=== PATIENT | male | born 1945 | race Caucasian/White ===

== ENCOUNTER 2017-05-03 04:32 | Emergency (ER) | payer MEDICARE, OTHER, SELFPAY ==
[2017-05-03 04:33] VITALS: BP 157/76; PULSE 57; RESP 20; TEMP 36.6; O2SAT 100; BMI 31.2
--- NOTE | 2017-05-03 04:47 | XR_ITS ---
XR chest portable HISTORY: Chest pain ITS.REASON: CARDIAC WORKUP ORDERING PHYSICIAN: Mark Gomes MD PATIENT AGE: 72 years COMPARISON: None available FINDINGS: The cardiomediastinal silhouette and pulmonary vascularity are within normal limits. The lungs are clear without infiltrates, suspicious nodules, or pleural effusions. No acute bony abnormalities. IMPRESSION: Negative chest, no acute finding
--- NOTE | 2017-05-03 05:31 | HMH.EDDIZZ ---
ED Disposition Clinical Impression: Benign paroxysmal positional vertigo Qualifiers: Laterality: unspecified laterality Qualified Code(s): H81.10 - Benign paroxysmal vertigo, unspecified ear Disposition: Home, Self-Care Condition on Discharge: Good Instructions: Vertigo Additional Instructions: use meds and see pcp for follow up Prescriptions: Meclizine HCl [Antivert 25mg tablet] 25 mg PO TID #14 tab Ondansetron HCl [Zofran 4mg Tab] 4 mg PO TID #20 tab Referrals: Provider,Referral, MD [Primary Care Provider] - - Critical Care Critical Care Time: No Attestation: On 05/03/17, the high probability of a clinically significant, sudden or life threatening deterioration of the following system(s) required my full and direct attention, intervention and personal management. The time I documented below is in addition to time spent performing reported procedures but includes the following listed in this critical care notation. Medical Decision Making - Medical Records Medical records reviewed: Yes: I reviewed the patient's medical records. Vital Signs: 05/03/17 04:33 Temperature 97.9 F Temperature Source Oral Pulse Rate [Right Brachial] 57 L Respiratory Rate 20 Blood Pressure [Right Arm] 157/76 Blood Pressure Mean [Right Arm] 103 Blood Pressure Source [Right Arm] Automatic Cuff Blood Pressure Position [Right Arm] Supine 02 Sat by Pulse Oximetry 100 Oxygen Delivery Method Room Air - Lab Data Lab results reviewed: Yes: I reviewed the patient's lab results. Lab Results 05/03/17 05:15: WBC 5.6, RBC 4.28 L, Hgb 14.2, Hct 40.3 L, MCV 94.1 H, MCH 33.3 H, MCHC 35.4, RDW 12.8, Plt Count 190, MPV 8.4, Neut % (Auto) 50.4, Lymph % (Auto) 40.7, [place] % (Auto) 6.8, Eos % (Auto) 1.6, Baso % (Auto) 0.5, Neut # (Auto) 2.8, Lymph # (Auto) 2.3, [place] # (Auto) 0.4, Eos # (Auto) 0.1, Baso # (Auto) 0.0 05/03/17 05:15: Sodium 143, Potassium 3.6, Chloride 109 H, Carbon Dioxide 21, Anion Gap 16.6 H, BUN 15, Creatinine 1.18, Estimated Creat Clear 79, Estimated GFR 61, Est GFR ( Amer) 73, Glucose 126 H, Calcium 8.4 L, Total Bilirubin 0.6, AST 25, ALT 45, Alkaline Phosphatase 76, Total Creatine Kinase 216, CK-MB (CK-2) 2.6, CK-MB (CK-2) Rel Index 1.2, Troponin I < 0.02, Total Protein 6.8, Albumin 3.6, Globulin 3.2, Albumin/Globulin Ratio 1.1 05/03/17 05:15: TSH 2.67, Thyroxine (T4) 7.6 Result diagrams: 05/03/17 05:15 05/03/17 05:15 Orders (Tests/Meds): ED MEDICATIONS Discontinued Medications Generic Name Dose Route Start Last Admin Trade Name Freq PRN Reason Stop Dose Admin Lactated Ringer's 1,000 mls @ 999 mls/hr 05/03/17 06:15 05/03/17 06:14 Lactated Ringer's 1000 Ml Bag IV 05/03/17 07:15 999 mls/hr .Q1H1M SHILOH Administration Meclizine HCl 25 mg 05/03/17 06:27 05/03/17 06:40 Antivert 25mg Tablet PO 05/03/17 06:28 25 mg ONCE ONE Administration Ondansetron HCl 4 mg 05/03/17 04:59 05/03/17 05:31 Zofran 4mg/2ml Vial IV 05/03/17 05:00 4 mg ONCE ONE Administration ORDERS Category Date Time Status ECG Request by /Nse Stat Y 05/03/17 04:47 Ordered - Radiology Data #1 Image(s): Chest Image Reviewed: Yes I reviewed the patient's radiology image Preliminary Findings: Normal/NAD - ECG Data Tracing #1 I reviewed this ECG and interpreted as documented below: Normal Sinus Rhythm: Yes Ischemic changes: non-specific ST-T wave changes - Stan Inquiry Pt receiving controlled substance: No Dizzy HPI - General Chief Complaint: Dizziness Stated Complaint: HEADSPINNING Time Seen by Provider: 05/03/17 05:31 Mode of Arrival: Ambulatory Source of Information: Patient, Relative, Medical Record Limitations: No Limitations Description of Symptoms (Recalled from ER Triage Doc. by RN): DIZZINESS AND SYNCOPAL LIKE EPISODES. STARTED AT 2300. PT REPORTS IM SO DIZZY I CANT STAND, WALK, OR MOVE WITHOUT GETTING SICK AT MY STOMACH . PT REPORTS I CANT OPEN MY EYES WITHOUT GET
--- NOTE | 2017-05-03 05:34 | ED_ITS ---
ED Disposition Clinical Impression: Benign paroxysmal positional vertigo Qualifiers: Laterality: unspecified laterality Qualified Code(s): H81.10 - Benign paroxysmal vertigo, unspecified ear Disposition: Home, Self-Care Condition on Discharge: Good Instructions: Vertigo Additional Instructions: use meds and see pcp for follow up Prescriptions: Meclizine HCl [Antivert 25mg tablet] 25 mg PO TID #14 tab Ondansetron HCl [Zofran 4mg Tab] 4 mg PO TID #20 tab Referrals: Provider,Referral, MD [Primary Care Provider] - - Critical Care Critical Care Time: No Attestation: On 05/03/17, the high probability of a clinically significant, sudden or life threatening deterioration of the following system(s) required my full and direct attention, intervention and personal management. The time I documented below is in addition to time spent performing reported procedures but includes the following listed in this critical care notation. Medical Decision Making - Medical Records Medical records reviewed: Yes: I reviewed the patient's medical records. Vital Signs: 05/03/17 04:33 Temperature 97.9 F Temperature Source Oral Pulse Rate [Right Brachial] 57 L Respiratory Rate 20 Blood Pressure [Right Arm] 157/76 Blood Pressure Mean [Right Arm] 103 Blood Pressure Source [Right Arm] Automatic Cuff Blood Pressure Position [Right Arm] Supine 02 Sat by Pulse Oximetry 100 Oxygen Delivery Method Room Air - Lab Data Lab results reviewed: Yes: I reviewed the patient's lab results. Lab Results 05/03/17 05:15: WBC 5.6, RBC 4.28 L, Hgb 14.2, Hct 40.3 L, MCV 94.1 H, MCH 33.3 H, MCHC 35.4, RDW 12.8, Plt Count 190, MPV 8.4, Neut % (Auto) 50.4, Lymph % ( Auto) 40.7, [place] % (Auto) 6.8, Eos % (Auto) 1.6, Baso % (Auto) 0.5, Neut # (Auto ) 2.8, Lymph # (Auto) 2.3, [place] # (Auto) 0.4, Eos # (Auto) 0.1, Baso # (Auto) 0.0 05/03/17 05:15: Sodium 143, Potassium 3.6, Chloride 109 H, Carbon Dioxide 21, Anion Gap 16.6 H, BUN 15, Creatinine 1.18, Estimated Creat Clear 79, Estimated GFR 61, Est GFR ( Amer) 73, Glucose 126 H, Calcium 8.4 L, Total Bilirubin 0.6, AST 25, ALT 45, Alkaline Phosphatase 76, Total Creatine Kinase 216, CK-MB (CK-2) 2.6, CK-MB (CK-2) Rel Index 1.2, Troponin I < 0.02, Total Protein 6.8, Albumin 3.6, Globulin 3.2, Albumin/Globulin Ratio 1.1 05/03/17 05:15: TSH 2.67, Thyroxine (T4) 7.6 Result diagrams: 05/03/17 05:15 05/03/17 05:15 Orders (Tests/Meds): ED MEDICATIONS Discontinued Medications Generic Name Dose Route Start Last Admin Trade Name Freq PRN Reason Stop Dose Admin Lactated Ringer's 1,000 mls @ 999 mls/hr 05/03/17 06:15 05/03/17 06:14 Lactated Ringer's 1000 Ml Bag IV 05/03/17 07:15 999 mls/hr .Q1H1M SHILOH Administration Meclizine HCl 25 mg 05/03/17 06:27 05/03/17 06:40 Antivert 25mg Tablet PO 05/03/17 06:28 25 mg ONCE ONE Administration Ondansetron HCl 4 mg 05/03/17 04:59 05/03/17 05:31 Zofran 4mg/2ml Vial IV 05/03/17 05:00 4 mg ONCE ONE Administration ORDERS Category Date Time Status ECG Request by /Germain Stat Y 05/03/17 04:47 Ordered - Radiology Data #1 Image(s): Chest Image Reviewed: Yes I reviewed the patient's radiology image Preliminary Findings: Normal/NAD - ECG Data Tracing #1 I reviewed this ECG and interpreted as docu
[2017-05-03 05:52] LABS: Basophils % 0.5 % (0.1-2.0); Eosinophils # 0.1 K/mm3 (0.0-0.4); Eosinophils % 1.6 % (0.1-12.0); Hematocrit 40.3 % (42.0-52.0); Hemoglobin 14.2 g/dL (14.1-18.0); Lymphocytes # 2.3 K/mm3 (0.7-4.5); Lymphocytes % 40.7 K/mm3 (10-50); Mean Corpuscular HGB Conc 35.4 g/dL (31.8-35.4); Mean Corpuscular Hemoglobin 33.3 pg (27.0-31.2); Mean Corpuscular Volume 94.1 fl (80-94); Mean Platelet Volume 8.4 fl (7.4-10.4); Monocytes # 0.4 K/mm3 (0.1-1.0); Monocytes % 6.8 % (1.7-9.3); Neutrophils # 2.8 K/mm3 (1.8-7.8); Neutrophils % 50.4 % (37.0-80.0); Platelet Count 190 K/mm3 (142-424); Red Blood Count 4.28 M/mm3 (4.60-6.20); Red Cell Distribution Width 12.8 % (11.5-17.5); White Blood Count 5.6 K/mm3 (4.8-10.8)
[2017-05-03 06:19] LABS: Alanine Aminotransferase 45 U/L (12-78); Albumin Level 3.6 gm/dL (3.4-5.0); Albumin/Globulin Ratio 1.1 (1.1-1.8); Alkaline Phosphatase 76 U/L (46-116); Anion Gap 16.6 mEq/L (5-15); Aspartate Amino Transferase 25 U/L (15-37); Bilirubin,Total 0.6 mg/dL (0.2-1.0); Blood Urea Nitrogen 15 mg/dL (7-18); CKMB Relative Index 1.2 U/L (0-4.0); Calcium 8.4 mg/dL (8.5-10.1); Carbon Dioxide 21 mmol/L (21.0-32.0); Chloride 109 mmol/L (98-107); Creatine Kinase 216 U/L (39-308); Creatine Kinase MB 2.6 mg/ml (0.0-3.6); Creatinine Clearance Estimated 79 mL/min (0-300); Creatinine,Serum 1.18 mg/dL (0.70-1.30); Estimated Glomerular Filt Rate 61 ml/min (>60); GFR (African American) 73 ML/MIN (>60); Globulin 3.2 gm/dl (1.3-3.2); Glucose 126 mg/dL (74-106); Potassium 3.6 mmoL/L (3.5-5.1); Sodium 143 mmol/L (136-145); Total Protein,Serum 6.8 gm/dL (6.4-8.2); Troponin I < 0.02 ng/ml (0.00-0.06)
[2017-05-03 07:06] LABS: T4 (Thyroxine) 7.6 ug/dl (4.7-13.3); Thyroid Stimulating Hormone 2.67 uIU/ml (0.358-3.740)
[2017-05-03 10:19] VITALS: BP 132/80; PULSE 85; RESP 18; TEMP 36.7; O2SAT 98
== END 2017-05-03 10:19 | disposition home or self-care (01) ==
PROVIDERS: Emergency Provider Emergency Medicine
DX: H81.10 Benign paroxysmal vertigo, unspecified ear (principal); Z79.899 Other long term (current) drug therapy
CPT/HCPCS: 71045; 80053; 82550; 82553; 84436; 84443; 84484; 85025; 93005; 93041; 96365; 99283; J2405

== ENCOUNTER → 2018-09-26 10:36 | Outpatient (POV) | payer MEDICARE, OTHER, SELFPAY | PROVIDERS: Visit Provider Otolaryngology | DX: Z00.00 Encounter for general adult medical examination without abnormal findings (principal) ==

== ENCOUNTER → 2018-10-09 10:19 | Outpatient (POV) | payer MEDICARE, OTHER, SELFPAY | PROVIDERS: PCP Family Medicine Addiction Medicine; Visit Provider Nurse Practitioner Family | DX: Z00.00 Encounter for general adult medical examination without abnormal findings (principal) ==

== ENCOUNTER → 2019-01-01 11:22 | Outpatient (POV) | payer MEDICARE, OTHER, SELFPAY | PROVIDERS: PCP Family Medicine Addiction Medicine; Visit Provider Nurse Practitioner Family | DX: Z00.00 Encounter for general adult medical examination without abnormal findings (principal) ==

== ENCOUNTER → 2019-10-05 17:32 | Outpatient (CLI) | payer MEDICARE, OTHER, SELFPAY ==
[2019-10-05 17:59] LABS: Basophils # 0.1 K/mm3 (0-0.2); Basophils % 0.8 % (0.1-2.0); Eosinophils # 0.2 K/mm3 (0.0-0.4); Eosinophils % 2.3 % (0.1-12.0); Hematocrit 45.1 % (42.0-52.0); Hemoglobin 14.7 g/dL (14.1-18.0); Lymphocytes # 2.6 K/mm3 (0.7-4.5); Lymphocytes % 37.1 % (10-50); Mean Corpuscular HGB Conc 32.5 g/dL (31.8-35.4); Mean Corpuscular Hemoglobin 32.2 pg (27.0-31.2); Mean Corpuscular Volume 99.3 fl (80-94); Mean Platelet Volume 7.5 fl (7.4-10.4); Monocytes # 0.7 K/mm3 (0.1-1.0); Monocytes % 9.4 % (1.7-9.3); Neutrophils # 3.6 K/mm3 (1.8-7.8); Neutrophils % 50.5 % (37.0-80.0); Platelet Count 222 K/mm3 (142-424); Red Blood Count 4.55 M/mm3 (4.60-6.20); Red Cell Distribution Width 13.2 % (11.5-17.5); White Blood Count 7.1 K/mm3 (4.8-10.8)
[2019-10-05 18:53] LABS: Alanine Aminotransferase 40 U/L (12-78); Albumin Level 4.4 g/dl (3.5-5.0); Albumin/Globulin Ratio 1.5 (1.1-1.8); Alkaline Phosphatase 81 U/L (38-126); Anion Gap 15.9 mEq/L (5-15); Aspartate Amino Transferase 40 U/L (17-59); Bilirubin,Total 0.6 mg/dl (0.2-1.3); Blood Urea Nitrogen 18 mg/dl (9-20); Calcium 9.3 mg/dl (8.4-10.2); Carbon Dioxide 22 mmol/L (22.0-30.0); Chloride 111 mmol/L (98-107); Chol/HDL Ratio 4.5 (1-3.5); Cholesterol 219 mg/dl (140-200); Estimated Glomerular Filt Rate 59 ml/min (>60); GFR (African American) 72 ML/MIN (>60); Glucose 93 mg/dl (74-100); HDL Cholesterol 49 mg/dl (40-60); Potassium 3.9 mmoL/L (3.5-5.1); Sodium 145 mmol/L (136-145); Total Protein,Serum 7.4 g/dl (6.3-8.2); Triglycerides 207 mg/dl (30-150); VLDL Cholesterol 41 mg/dL (0-40)
[2019-10-05 19:04] LABS: Direct LDL Cholesterol 138.99 mg/dL (100-129)
[2019-10-05 19:13] LABS: T4 (Thyroxine) 8.8 ug/dl (5.53-11.0)
[2019-10-05 19:27] LABS: Prostate Specific Ag Screen 0.5 ng/ml (0.0-4.0); Thyroid Stimulating Hormone 2.47 uIU/mL (0.465-4.68)
== END ==
PROVIDERS: Visit Provider Family Medicine
DX: E03.9 Hypothyroidism, unspecified (principal); Z12.5 Encounter for screening for malignant neoplasm of prostate
CPT/HCPCS: 80053; 80061; 84436; 84443; 85025; G0103

== ENCOUNTER → 2020-12-16 09:36 | Outpatient (CLI) | payer MEDICARE, OTHER, SELFPAY ==
--- NOTE | 2020-12-16 10:07 | ECG_ITS ---
APPROVED REPORT Exam: Resting ECG HR:51 bpm ECG Measurements Heart Rate 51 AXES VA 212 P -2 QRSd 78 QRS -27 QT 450 T -11 QTc 414 Conclusion Sinus bradycardia with 1st degree AV block Minimal voltage criteria for LVH, may be normal variant Unchaged q in III Abnormal ECG Electronically signed by : Syed Rivers MD 12/16/2020 10:51:46
[2020-12-16 10:14] LABS: Basophils # 0.1 K/mm3 (0-0.2); Basophils % 0.9 % (0.1-2.0); Eosinophils # 0.2 K/mm3 (0.0-0.4); Eosinophils % 2.1 % (0.1-12.0); Hematocrit 43.8 % (42.0-52.0); Hemoglobin 14.8 g/dL (14.1-18.0); Lymphocytes # 2.5 K/mm3 (0.7-4.5); Lymphocytes % 35.9 % (10-50); Mean Corpuscular HGB Conc 33.7 g/dL (31.8-35.4); Mean Corpuscular Hemoglobin 33.5 pg (27.0-31.2); Mean Corpuscular Volume 99.2 fl (80-94); Mean Platelet Volume 8.2 fl (7.4-10.4); Monocytes # 0.5 K/mm3 (0.1-1.0); Monocytes % 7.3 % (1.7-9.3); Neutrophils # 3.8 K/mm3 (1.8-7.8); Neutrophils % 53.8 % (37.0-80.0); Platelet Count 266 K/mm3 (142-424); Red Blood Count 4.42 M/mm3 (4.60-6.20); Red Cell Distribution Width 13.6 % (11.5-17.5); White Blood Count 7.1 K/mm3 (4.8-10.8)
== END ==
PROVIDERS: Visit Provider Otolaryngology
DX: Z01.812 Encounter for preprocedural laboratory examination (principal); Z20.822 Contact with and (suspected) exposure to COVID-19; L98.9 Disorder of the skin and subcutaneous tissue, unspecified
CPT/HCPCS: 36415; 85025; 93005; C9803; U0003; U0005

== ENCOUNTER 2020-12-18 07:42 | Day surgery (SDC) | payer MEDICARE, OTHER, SELFPAY ==
[2020-12-16 11:53] VITALS: BMI 32.6
[2020-12-18 08:23] VITALS: BP 174/86; PULSE 54; RESP 18; TEMP 36.9; O2SAT 97
[2020-12-18 11:05] VITALS: BP 150/87; PULSE 83; RESP 18; TEMP 36.4; O2SAT 96
[2020-12-18 11:20] VITALS: BP 150/86; PULSE 74; RESP 18; TEMP 36.4; O2SAT 93
[2020-12-18 11:35] VITALS: BP 150/84; PULSE 81; RESP 18; TEMP 36.4; O2SAT 94
--- NOTE | 2020-12-18 15:15 | HMH.OPNOTE ---
Date of procedure: 12/18/20 Pre-op Diagnosis:: 1. 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 Excision of neoplasm left cheek 1.5 cm with tissue rearrangement geometric plastic repair 2. Excision of lesion right cheek 4 cm with tissue rearrangement Z-plasty repair Surgeon:: Kerwin Vazquez MD [employer]OTE [employer] OPERATIONS SUPERVISOR:: Rahat Crump Anesthesia: MAC Estimated blood loss (mL): 4 Operative findings:: same Operative note:: The lesion on the left cheek was prepped and draped, and the perilesional area was infiltrated with 4 cc of 2% lidocaine containing epinephrine the dhara out measured 1.5 cm the Alysa was incised and the lesion was excised and submitted. Bleeding was stopped with bipolar cautery superior and inferior incisions were made and a tissue rearrangement, Z-plasty repair was done with interrupted 4-0 nylon sutures. Similarly the right ear cheek was prepped and draped the lesion measured 4 cm the lesion was marked out and the dhara out was incised and the lesion was excised in entirety and submitted bleeding was stopped with bipolar cautery superior and inferior incisions were made and tissue rearrangement geometric plastic repair was done with interrupted 2-0 nylon sutures. The patient was sent to recovery in good general condition Condition: stable Disposition: PACU Complications:: none
== END 2020-12-18 11:35 | disposition home or self-care (01) ==
LOC: OR 07:43
PROVIDERS: PCP Family Medicine; Visit Provider Otolaryngology
DX: L82.0 Inflamed seborrheic keratosis (principal); I10 Essential (primary) hypertension; E07.9 Disorder of thyroid, unspecified; Z79.899 Other long term (current) drug therapy
CPT/HCPCS: 14040 ×2; 88305; 96374

== ENCOUNTER 2021-07-16 12:27 | Emergency (ER) | payer MEDICARE, OTHER, SELFPAY ==
[2021-07-16 13:30] VITALS: BP 150/73; PULSE 58; RESP 18; TEMP 36.8; O2SAT 97; BMI 31.8
--- NOTE | 2021-07-16 14:09 | HMH.EDUTC ---
[facility] [place] Disposition Clinical Impression: Sinusitis Qualifiers: Sinusitis location: unspecified location Chronicity: unspecified Qualified Code(s): J32.9 - Chronic sinusitis, unspecified Disposition: Home, Self-Care Condition on Discharge: Good Instructions: Sinusitis, DI for Sinusitis, Prednisone Additional Instructions: *Monitor Temp, Over the counter Motrin or Tylenol as directed/as needed Tylenol every 4 hours and Motrin every 6 hours (as long as your family doctor has told you that you can take it) for fever or pain. and straight to ER if unable to lower temp less than 101.0 after medication given *Warm salt water gargles may help to soothe the throat *Throat Lozenges *Warm fluids like tea with honey may help to soothe the throat *Sleep elevated *Humidifier/Vaporizer *Flonase 2 sprays in each nostril daily but be aware that it may take 2-3 days before you notice improvement Take medication as prescribed Follow up IMMEDIATELY for new or worsening symptoms or no Noticeable improvement over the next 48-72 hours. 911 for difficulty breathing or swallowing Prescriptions: Amoxicillin/Potassium Clav [Amox-Clav 875-125 mg Tablet] 1 tab PO BID #14 tab Transmission Status: Pending to [facility] # predniSONE [Deltasone 10mg tablet] 10 mg PO BID 5 Days #10 tab Transmission Status: Pending to [facility] # Fluticasone Propionate [Flonase 50mcg nasal spray 16gm] 1 spr NS DAILY #1 each Transmission Status: Pending to [facility] # Referrals: Humble Upton MD [Primary Care Provider] - As needed Time of Disposition: 14:18 Medical Decision Making - Stan Inquiry Pt receiving controlled substance: No Stan was queried for this patient: No Vital Signs: 07/16/21 13:30 Temperature 98.3 F Temperature Source Oral Pulse Rate [Right Brachial] 58 L Respiratory Rate 18 Blood Pressure [Right Arm] 150/73 H Blood Pressure Mean [Right Arm] 98 Blood Pressure Source [Right Arm] Automatic Cuff Blood Pressure Position [Right Arm] Sitting 02 Sat by Pulse Oximetry 97 Oxygen Delivery Method Room Air Medical Decision Narrative: Patient states that he has taken prednisone in the past without reactions or complications [facility] [place] HPI - General Stated complaint: sinus congestion/drainage, cough, hoarse Time Seen by Provider: 07/16/21 14:09 Mode of Arrival: Ambulatory Source of Information: Patient Limitations: No Limitations Description of Symptoms (Recalled from Triage Doc. by RN): PATIENT C/O POSSIBLE SINUS INFECTION AND LOSS OF VOICE HEENT Symptoms (Recalled from RN notes): Yes Resp Symptoms (Recalled from RN notes): No Skin Symptoms (Recalled from RN notes): No MS Symptoms (Recalled from RN notes): No Functional Status (Recalled from RN notes): WNL - History of Present Illness Provider Complaint: Patient state that he has been having sinus pain and pressure for about 2 weeks States that he thought it was allergies but he woke up this morning feeling hoarse and pain behind his eyes so he came in to get checked - Related Data Home Medications Medication Instructions Recorded Confirmed Cholestyramine/Aspartame 4 g PO BID 12/16/20 01/21/21 [Cholestyramine Light] Esomeprazole Magnesium 40 mg PO DAILY 12/16/20 01/21/21 Famotidine [Acid Senior Marketing Engineer] See Rx Instructions .ROUTE .COMPLEX 12/16/20 01/21/21 Levothyroxine Sodium [Synthroid See Rx Instructions .ROUTE .COMPLEX 12/16/20 01/21/21 75mcg (0.075mg) tablet] atenoloL [Atenolol 25mg Tab] 25 mg PO DAILY 12/16/20 07/16/21 Previous Rx's Medication Instructions Recorded meclizine 25 mg tablet 25 mg PO TID #60 tab 10/05/19 amoxicillin 500 mg capsule 500 mg PO Q12H 10 Days #20 cap 01/21/21 Amoxicillin/Potassium Clav 1 tab PO BID #14 tab 07/16/21 [Amox-Clav 875-125 mg Tablet] Fluticasone Propionate [Flonase 1 spr NS DAILY #1 each 07/16/21 50mcg nasal spray 16gm] predniSONE [Deltasone 10mg tablet] 10 mg PO BID 5 Days #10 tab
[2021-07-16 14:20] VITALS: BP 150/73; PULSE 58; RESP 18; TEMP 36.8; O2SAT 97
== END 2021-07-16 14:23 | disposition home or self-care (01) ==
PROVIDERS: Emergency Provider Nurse Practitioner; PCP Family Medicine
DX: J32.9 Chronic sinusitis, unspecified (principal); K21.9 Gastro-esophageal reflux disease without esophagitis
CPT/HCPCS: 99212; G0463

== ENCOUNTER 2022-08-30 08:54 | Observation (INO) | payer MEDICARE, OTHER, SELFPAY ==
[2022-08-30] VITALS (13 sets, daily range): BP systolic 115–185; BP diastolic 59–97; PULSE 45–81; RESP 16–20; TEMP 36.4–37.1; O2SAT 94–98; BMI 35.9; BMI 35.4
--- NOTE | 2022-08-30 08:54 | CT_ITS ---
FINAL REPORT TECHNIQUE: multiple axial CT images were performed from the foramen magnum to the vertex without enhancement. This study was performed with techniques to keep radiation doses as low as reasonably achievable (ALARA). Individualized dose reduction techniques using automated exposure control or adjustment of mA and/or kV according to the patient's size were employed. CLINICAL HISTORY: stroke alert FINDINGS: The ventricles are enlarged. There is moderate, diffuse atrophy. There are moderate periventricular white matter change likely related to small vessel disease. Physiologic calcifications are seen in the basal ganglia. There is no evidence of hemorrhage. No masses are identified. No extra-axial fluid is seen. The sinuses are normal. IMPRESSION: Moderate atrophy and chronic changes without acute process. Reviewed, Interpreted and Dictated by Christiano Cartwright MD Transcribed by Gladys Baeza Authenticated and [facility]
--- NOTE | 2022-08-30 08:55 | CT_ITS ---
FINAL REPORT TECHNIQUE: NASCET technique utilized for stenosis evaluation. CLINICAL HISTORY: stroke alert COMPARISON: None FINDINGS: RIGHT CAROTID: There is moderate vascular calcification of the posterior aspect of the proximal right internal carotid artery with at least 50% stenosis. LEFT CAROTID: Extensive vascular calcification is also seen of the left internal carotid artery bulb without significant stenosis. VERTEBRALS: The vertebrals are patent. No significant stenosis is present. IMPRESSION: Calcification of the carotid bifurcations bilaterally with at least 50% stenosis of the right ICA. Reviewed, Interpreted and Dictated by Christiano Cartwright MD Transcribed by Amanda Rodriguez Authenticated and [facility]
--- NOTE | 2022-08-30 08:56 | CT_ITS ---
FINAL REPORT TECHNIQUE: Multiple axial CT angiography images were performed from the foramen magnum to the vertex before and during IV contrast administration. This study was performed with techniques to keep radiation doses as low as reasonably achievable (ALARA). Individualized dose reduction techniques using automated exposure control or adjustment of mA and/or kV according to the patient's size were employed. CLINICAL HISTORY: stroke protocol FINDINGS: CTA HEAD: There is extensive venous contamination. There is moderate vascular calcification of the posterior aspect of the right internal carotid artery with at least 50% stenosis. Extensive vascular calcification is also seen of the left internal carotid artery bulb without significant stenosis. The major intracranial arterial system is patent without hemodynamically significant stenosis or major vessel occlusion.No aneurysm is identified. IMPRESSION: Calcification of the carotid bifurcations bilaterally with at least 50% stenosis of the right ICA. No evidence of intracranial large vessel occlusion. Reviewed, Interpreted and Dictated by Christiano Cartwright MD Transcribed by Gladys Baeza Authenticated and [facility]
--- NOTE | 2022-08-30 08:57 | PC.NURSE ---
pt to CT via stretcher
--- NOTE | 2022-08-30 08:57 | PC.NURSE ---
To CT for stroke alert
--- NOTE | 2022-08-30 08:57 | PC.NURSE ---
Stroke Alert called by ER at [phone]
--- NOTE | 2022-08-30 09:04 | XR_ITS ---
FINAL REPORT CLINICAL HISTORY: stroke symptoms COMPARISON: None FINDINGS: The heart size is normal. The mediastinum is normal. There is no focal infiltrate or edema. There are no pleural effusions. There is no pneumothorax. There is no osseous abnormality. IMPRESSION: No acute cardiopulmonary process Reviewed, Interpreted and Dictated by Christiano Cartwright MD Transcribed by Amanda Rodriguez Authenticated and [facility]
--- NOTE | 2022-08-30 09:04 | HMH.EDGENADL ---
Discharge Plan Disposition Patient Disposition: Admitted Chief Complaint: Neuro Symptoms/Deficit Clinical Impressions Clinical Impression: Stroke Discharge ED Provider: Juan Chamberlain General Adult HPI General Chief complaint: Neuro Symptoms/Deficit Stated complaint: slurred speech Time Seen by Provider: 08/30/22 09:02 Mode of Arrival: Ambulatory Source of Information: Patient Limitations: No Limitations Description of Symptoms (Recalled from ER Triage Doc. by RN): Pt reports woke up this morning with slurred speech, R sided facial droop noted also. Pt ambulatory into ER independently. Pt reports went to bed at 9:30 pm lastnight with no symptoms. History of Present Illness HPI narrative: This is a 77-year-old male with history of hypertension and thyroid problem, who is presenting with strokelike symptoms. Patient states that he went to bed around 9:30 PM on 08/29 and woke up today with slurred speech. About an hour prior to arrival, went to work where son noticed he was walking off balance, and having difficulty speaking, so brought him to the ER. Here, patient without pain complaints, but stating he is having difficulty speaking. Denies numbness, weakness, blurred or double vision, tingling, difficulty breathing or swallowing, difficulty walking, falls, or any other concerns. Related Data Home Medications Medication Instructions Recorded Confirmed cholestyramine-aspartame 4 gram 4 g PO BID STOMACH 12/16/20 06/01/22 oral powder for susp in a packet Previous Rx's Medication Instructions Recorded atenolol 50 mg tablet 50 mg PO DAILY #90 tabs 06/01/22 levothyroxine 75 mcg tablet See Rx Instructions .Route 06/01/22 .COMPLEX #90 tabs Allergies Allergy/AdvReac Type Severity Reaction Status Date / Time No Known Allergies Allergy Verified 06/01/22 13:52 [facility] Disclaimer: The information contained in this section may have been updated after the patient was seen, as this information can be updated by other users. Social History Smoking Status: Current every day smoker second hand exposure: No alcohol intake: never substance use type: denies use current occupational status: retired Travel in the last 8 weeks: None household members: children housing: house current occupational exposures/hazards: No caffeine: Yes ROS Obtained: Yes All systems reviewed & no additional complaints except as documented Physical Exam General General appearance: alert and in no apparent distress Head Head exam: other (Right-sided facial droop sparing forehead) Eye Eye exam: Present other (Right-sided ptosis) ENT ENT exam: Present normal exam and normal oropharynx Respiratory Respiratory exam: Present normal lung sounds bilaterally; Absent respiratory distress or wheezes Cardiovascular Cardiovascular exam: Present regular rate and normal rhythm Abdominal Exam Abdominal exam: Present soft; Absent distention or tenderness Extremities Exam Extremities exam: Present normal inspection and full ROM (Mild dysmetria right upper extremity) Back Exam Back exam: Absent CVA tenderness (R) or CVA tenderness (L) Neurological Exam Neurological exam: Present alert, oriented X3 (Oriented to person and time, not place), normal gait and reflexes normal; Absent CN II-XII intact (Right-sided facial droop sparing forehead) or motor sensory deficit Psychiatric Psychiatric exam: Present normal affect Skin Skin exam: Present warm Medical Decision Making Medical Records Medical records reviewed: Yes I reviewed the patient's medical records. Tsan Inquiry Pt receiving controlled substance: No Vital Signs: 08/30/22 08:54 08/30/22 09:23 08/30/22 09:30 Pulse Rate 58 L 58 L Pulse Rate [Right Radial] 55 L Respiratory Rate 18 18 Blood Pressure 149/71 H 151/78 H Blood Pressure [Right Arm] 164/86 H Blood Pressure Mean 94 84 Blood Pressure Mean
[2022-08-30 09:26] LABS: Basophils % 0.4 % (0.1-2.0); Eosinophils # 0.2 K/mm3 (0.0-0.4); Eosinophils % 2.5 % (0.1-12.0); Hematocrit 41.9 % (42.0-52.0); Hemoglobin 14.2 g/dL (14.1-18.0); Lymphocytes # 2.4 K/mm3 (0.7-4.5); Lymphocytes % 38.5 % (10-50); Mean Corpuscular HGB Conc 33.9 g/dL (31.8-35.4); Mean Corpuscular Hemoglobin 32.6 pg (27.0-31.2); Mean Corpuscular Volume 96.1 fl (80-94); Mean Platelet Volume 8.4 fl (7.4-10.4); Monocytes # 0.4 K/mm3 (0.1-1.0); Monocytes % 6.9 % (1.7-9.3); Neutrophils # 3.3 K/mm3 (1.8-7.8); Neutrophils % 51.8 % (37.0-80.0); Platelet Count 206 K/mm3 (142-424); Red Blood Count 4.36 M/mm3 (4.60-6.20); Red Cell Distribution Width 13.3 % (11.5-17.5); White Blood Count 6.3 K/mm3 (4.8-10.8)
[2022-08-30 09:29] LABS: Chloride 108 mmol/L (98-107); Potassium 3.7 mmoL/L (3.5-5.1); Sodium 142 mmol/L (136-145)
[2022-08-30 09:31] LABS: Blood Urea Nitrogen 13 mg/dl (9-20); Creatinine Clearance Estimated 90 mL/min (50-200); Estimated Glomerular Filt Rate 65 ml/min (>60); GFR (African American) 79 ML/MIN (>60)
[2022-08-30 09:32] LABS: Activated Partial Thrombo Time 26.1 seconds (22.8-30.6); Alanine Aminotransferase 79 U/L (12-78); Albumin Level 4.1 g/dl (3.5-5.0); Albumin/Globulin Ratio 1.4 (1.1-1.8); Alkaline Phosphatase 73 U/L (38-126); Anion Gap 13.7 mEq/L (5-15); Aspartate Amino Transferase 95 U/L (17-59); Bilirubin,Total 0.7 mg/dl (0.2-1.3); Calcium 8.8 mg/dl (8.4-10.2); Carbon Dioxide 24 mmol/L (22.0-30.0); Chol/HDL Ratio 5.4 (1-3.5); Cholesterol 216 mg/dl (140-200); Globulin 2.9 g/dL (1.3-3.2); Glucose 122 mg/dl (74-100); HDL Cholesterol 40 mg/dl (40-60); INR 0.96 (0.9-1.1); Prothrombin Time 10.4 seconds (10.1-12.5); Triglycerides 156 mg/dl (30-150); VLDL Cholesterol 31 mg/dL (0-40)
[2022-08-30 09:43] LABS: Direct LDL Cholesterol 123.74 mg/dL (100-129)
--- NOTE | 2022-08-30 09:46 | PC.NURSE ---
contacted rad to check on status of pt CT head for stroke protocol- states she is going to fax down a preliminary report on it.
[2022-08-30 09:47] LABS: Troponin I < 0.01 ng/ml (0.00-0.034)
--- NOTE | 2022-08-30 09:50 | ECG_ITS ---
APPROVED REPORT Exam: Resting ECG HR:57 bpm ECG Measurements Heart Rate 57 AXES LA 171 P 232 QRSd 82 QRS -5 QT 413 T 20 QTc 407 Conclusion SINUS BRADYCARDIA WITH OCCASIONAL SUPRAVENTRICULAR PREMATURE COMPLEXES BORDERLINE ECG UNCONFIRMED REPORT Electronically signed by : Syed Rivers MD 08/30/2022 17:11:06
[2022-08-30 09:51] LABS: Hemoglobin A1C 5.4 % (4.0-6.0); T4 (Thyroxine) 11.7 ug/dl (5.53-11.0)
--- NOTE | 2022-08-30 09:54 | PC.NURSE ---
DAYA MCCARTNEY at discussing test results
--- NOTE | 2022-08-30 09:56 | PC.NURSE ---
Radiology power-shared to [facility]. Disc also being burned with images
--- NOTE | 2022-08-30 09:57 | PC.NURSE ---
Dr. Chamberlain at to speak with patient for update on test results; family at BS
--- NOTE | 2022-08-30 10:03 | PC.NURSE ---
Dr Chamberlain speaking with Dr Pimentel
[2022-08-30 10:05] LABS: Thyroid Stimulating Hormone 3.53 uIU/mL (0.465-4.68)
--- NOTE | 2022-08-30 10:11 | PC.NURSE ---
DAYA MCCARTNEY speaking with hospitalist dr. schmidt
--- NOTE | 2022-08-30 10:14 | PC.NURSE ---
notified care management of admission
[2022-08-30 10:18] LABS: Coronavirus 19, PCR Not Detected (NotDetected); Influenza A, PCR Not Detected (NotDetected); Influenza B, PCR Not Detected (NotDetected)
--- NOTE | 2022-08-30 10:41 | HMH.PHAINT1 ---
Pharmacy Intervention Comments: MEDICATION RECONCILIATION COMPLETED ON PATIENT USING EXTERNAL FILL HISTORY FROM PHARMACY AND LIST FROM PCP OFFICE. -CHERIE TORRES, [id number]
--- NOTE | 2022-08-30 10:54 | PC.NURSE ---
PT ASPIRIN HELD AT THIS TIME TO FAILED DYSPHAGIA SCREEN. PT HAS OBVIOUS SLUURED SPEECH AND RIGHT FACIAL DROOP
--- NOTE | 2022-08-30 11:07 | PC.NURSE ---
Dr. Taylor hospitalist at BS
--- NOTE | 2022-08-30 11:21 | PC.NURSE ---
report called to danyelle garvin rn on second floor at this time, states will send staff down to transport pt.
--- NOTE | 2022-08-30 12:10 | EXP.HP ---
History of Present Illness *Admission Date: 08/30/22 *Reason for visit:: Ataxia, speech difficulty, facial droop *History of present illness: Patient with past medical history of hypothyroidism, hypertension, hyperlipidemia presents with ataxia, speech problems, and right facial droop. Patient's 3 sons and daughter present during evaluation by Dr. Taylor. Daughter and family state that right facial droop has occurred for over 2 months. Family agree facial droop has gotten worse over past 24 hours. Patient reports going to bed around 10 PM yesterday, and awaking with speech/walking issues. Patient thinks he awoke around 6 AM, then went to work at 8 AM. Patient's son present with patient at 6 AM, and confirmed patient ataxia/right facial droop issues. Speech difficulties and ataxia worsened at work around 8 AM, and patient brought to hospital for evaluation. Patient's admission NIH score 4, with [facility] neurology service consulted. Patient deemed outside tPA window, CTA head/neck showed no large vascular occlusion, and CT brain showed no hemorrhage or mass effect. Patient subsequently deemed appropriate for admission to [facility], and admitted for acute/subacute CVA evaluation. Persistent right facial droop, and right lower extremity weakness noted by Dr. Taylor during ED evaluation. Denies fevers, sick contacts, chills, diarrhea, chest pain, shortness of breath, or abdominal pain. [facility] Disclaimer: The information contained in this section may have been updated after the patient was seen, as this information can be updated by other users. Social History Smoking Status: Current every day smoker second hand exposure: No alcohol intake: never substance use type: denies use current occupational status: retired Travel in the last 8 weeks: None household members: children housing: house current occupational exposures/hazards: No caffeine: Yes Meds Home Medications and Allergies Home Medications Medication Instructions Recorded Confirmed Type atenolol 50 mg tablet 50 mg PO DAILY Hypertension 08/30/22 08/30/22 History levothyroxine 75 mcg tablet 75 mcg PO DAILY THYROID 08/30/22 08/30/22 History New Prescriptions to Start Prescriptions: Allergies Allergy/AdvReac Type Severity Reaction Status Date / Time No Known Allergies Allergy Verified 06/01/22 13:52 Exam Data for Last 24 hours Vital signs and Labs for Last 24 Hours: Pulse Resp BP Pulse Ox 57 L 20 175/95 H 96 08/30/22 11:31 08/30/22 11:31 08/30/22 11:31 08/30/22 11:31 Laboratory Results - last 24 hr 08/30/22 08:56: WBC 6.3, RBC 4.36 L, Hgb 14.2, Hct 41.9 L, MCV 96.1 H, MCH 32.6 H, MCHC 33.9, RDW 13.3, Plt Count 206, MPV 8.4, Neut % (Auto) 51.8, Lymph % (Auto) 38.5, [place] % (Auto) 6.9, Eos % (Auto) 2.5, Baso % (Auto) 0.4, Neut # (Auto) 3.3, Lymph # (Auto) 2.4, [place] # (Auto) 0.4, Eos # (Auto) 0.2, Baso # (Auto) 0.0 08/30/22 08:56: PT 10.4, INR 0.96, APTT 26.1 08/30/22 08:56: Sodium 142, Potassium 3.7, Chloride 108 H, Carbon Dioxide 24, Anion Gap 13.7, BUN 13, Creatinine 1.10, Estimated Creat Clear 90, Estimated GFR 65, Est GFR ( Amer) 79, Glucose 122 H, Calcium 8.8, Total Bilirubin 0.7, AST 95 H, ALT 79 H, Alkaline Phosphatase 73, Troponin I < 0.01, Total Protein 7.0, Albumin 4.1, Globulin 2.9, Albumin/Globulin Ratio 1.4, Triglycerides 156 H, Cholesterol 216 H, LDL Cholesterol Direct 123.74, VLDL Cholesterol 31, HDL Cholesterol 40, Cholesterol/HDL Ratio 5.4 H, TSH 3.53, Thyroxine (T4) 11.7 H 08/30/22 08:56: Hemoglobin A1c 5.4 08/30/22 10:15: SARS-CoV-2 (PCR) Not detected, Influenza A Untype (PCR) Not detected, Influenza Type B (PCR) Not detected I & O for Last 24 hours: Intake & Output 08/27/22 08/28/22 08/29/22 08/30/22 23:59 23:59 23:59 23:59 Weight 113.398 kg Constitutional Constitutional: no acute distress *Routine HEEN
--- NOTE | 2022-08-30 12:20 | PC.NURSE ---
pt to rad
--- NOTE | 2022-08-30 12:21 | MR_ITS ---
FINAL REPORT CLINICAL HISTORY: TO RULE OUT STROKE right sided facial droop, slurred speech COMPARISON: None FINDINGS: Multi planar MR imaging was obtained through the brain without contrast. The midline structures appear intact. There is moderate abnormal signal in the deep white matter bilaterally. There is mild restricted diffusion in the region of the head of the caudate and anterior left basal ganglia. There is marked decreased signal on the ADC map images probably due to acute ischemia. The visualized paranasal sinuses demonstrate normal signal voids. The seventh and eighth nerve root complexes are intact. IMPRESSION: Extensive changes of chronic microvascular ischemia. Large region of restricted diffusion in the head of the caudate and anterior left basal ganglia probably due to acute ischemia. Reviewed, Interpreted and Dictated by Christiano Cartwright MD Transcribed by Amanda Rodriguez Authenticated and [facility]
--- NOTE | 2022-08-30 12:23 | PC.NURSE ---
arrive to floor at 12:10 by w/c from ED
--- NOTE | 2022-08-30 13:26 | HMH.PTEV ---
Physical Therapy Evaluation Rehab PT IP Evaluation Start: 08/30/22 11:58 Freq: ONCE Status: Active Protocol: Document 08/30/22 13:23 CHRISSYJamarYENI (Rec: 08/30/22 13:26 [place] [id number]) Subjective/History History History 77 yowm adm to [facility] with CVA vs TIA symptoms, including R sided weakness, slurred speech and confusion. Hx of HTN, HLD , Hypothyroidism. He reports he lives with his son, 1-2 steps to enter the home, and he is generally independent with all mobility without AD. Subjective Subjective Pt has no c/o this pm, feels better. Rehab PT IP Eval Objective Appearance Patient Behavior Appropriate Patient Orientation Person,Place,Time Difficulty following instructions none Speech Pattern Clear Ambulation Patient Able to Ambulate Yes Ambulation Observation IP General Gait Pattern Observation No Deviations/Normal Ambulation Distance (feet) 20 Ambulation Assistive Device None Ambulation Ability Independent Balance Ability to Arise Able, uses arms to help Sitting Balance Steady, safe Standing Balance Steady, wide stance Dynamic Sitting Balance Ability Good Dynamic Standing Balance Ability Good Transfers Bed Transfer Ability Independent Chair Transfer Ability Independent Sit to Stand Bed Transfer Ability Independent Sit to Stand Chair Transfer Ability Independent ROM All Extremities PT ROM Status WFL MMT All Extremities PT MMT WFL Rehab PT IP prob,goals,plan Problems Date of Evaluation: 08/30/22 Discharge Plan PT Discharge Plan Symptoms appear to be resolving, but mild slurred speech remains. Pt is appropriate to return home once medically stable for d/c. Outpatient thrapy services as needed. G -code Required No Eval Complexity Eval Charge Codes 19014 - High Complexity PHYSICIAN CERTIFICATION: I certify the specified therapy services for Nelson Fong are required, authorized, and reviewed every 30 days.
--- NOTE | 2022-08-30 13:31 | HMH.OTEV ---
OT Inpatient Evaluation Rehab OT IP Evaluation Start: 08/30/22 11:58 Freq: ONCE Status: Active Protocol: Document 08/30/22 13:22 LAISHA (Rec: 08/30/22 13:31 [facility] [id number]) Rehab OT IP Assessment Subjective History Pt oriented x3 on arrival. Pt agreeable to engage in therapy session. Pt's son and daughter present. Pt was admitted via ED on 08/30/22 for Ataxia, speech difficulty, facial droop; possible CVA. Prior to being in the hospital , pt lived at home with his son. Prior to this event he was independent with all ADLs and IADLs. he still drove and worked fulltime. He did not require any type of AE during ambulation or ADLs. Pt has a past medical history of hypothyroidism, hypertension, hyperlipidemia Subjective I feel better. Objective Patient Orientation Person,Place,Birthday Upper Extremity Gross ROM WFL Bed Mobility bed mobility-scooting,bed mobility - supine/sit,bed mobility - rolling Assist Level Supervision/Stand by Transfer Training Sit/Stand Transfer Assist Level Supervision/Stand by Chair Transfer Ability Supervision/Stand by Chair Transfer Technique Sit to/from Ambulatory Chair Transfer Assistive Devices None Lower Body Dressing Ability Standby Assistance Rehab OT IP prob,goals,plan Problems Date of Evaluation: 08/30/22 Rehab Potential Rehab Potential Innapropriate for Skilled Therapy Discharge Plan OT Discharge Plan At this time, pt appears to be at his baseline with functional transfers and ADLs. Symptoms appear to have resolved except for mild slurred speech and facial droop. Pt can return home with son once medically stable per physician. Outpatient therapy services as needed. Eval Complexity Eval Charge Codes 33607 - Low Complexity G Codes G -code Required No
--- NOTE | 2022-08-30 14:19 | HMH.SLAPHASI ---
Speech & Language Evaluation Speech/Language Aphasia Evaluation Start: 08/30/22 13:22 Freq: once Status: Complete Protocol: Document 08/30/22 13:22 SIRENABRIANNADIONJOHANA (Rec: 08/30/22 14:17 CWLINDAEIN [id number]) Aphasia Assessment/Goals/Plan Assessment Date of Evaluation: 08/30/22 Evaluation Type Initial Certification Assessment/Problems TIA vs CVA per MD order Does Patient Qualify for Service Yes Qualify/Failure Comment Based on the results of the speech/language/cognitive evaluation, pt would benefit from skilled ST services to improve his motor speech and cognitive-linguistic skills while admitted at [facility]. Plan Pt will be seen # times/week 4 for # weeks 4 Anticipate reaching STG in # weeks 2 Anticipate reaching LTG in # weeks 4 Pt/Guardian verbally ack understanding Yes of dx/prognosis/goals Pt/Guardian verbally ack understanding Yes of/consent to tx prog G -code Required No STG-Attending/Orientation/Memory Orientation 100 Memory Recall 80 STG-Intell/Buccal/Labial Strength Intelligibility 100 #Intelligibility Drills Performed/Sesson 10 Crystal Report Developer Goals Increase oral motor tone to improve Yes intelligibility. Increase cognitive skills to communicate Yes w/family & friends Education Instructions provided CSE and speech/language/cog eval results and recommendations discussed with pt, family, care management, and nursing who expressed understanding. Pt/Caregiver Able to Recall Information Able to recall/restate Reinforcement needed No Speech & Language HPI History Present Illness Description of Patient Problem Mr. Fong is a 77 y.o. male presenting to [facility] with ataxia, difficulty with speech, and a right facial droop that began ~ 2 months ago but has worsened in the past 24 hours. Initial NIH was 4 when he arrived in the ED. He is currently on room air and has a regular diet and thin liquids. Family reports no issues with swallowing, but continues with confusion and slurred speech. PMH sig
--- NOTE | 2022-08-30 14:21 | HMH.SLDYSPHA ---
Speech & Language Evaluation Speech/Language Dysphagia Evaluation Start: 08/30/22 13:22 Freq: ONCE Status: Active Protocol: Document 08/30/22 13:22 SIRENAEICHRISTIANO (Rec: 08/30/22 14:17 CWBRIANNAGLEIN [id number]) Speech & Language HPI History Present Illness Description of Patient Problem Mr. Fong is a 77 y.o. male presenting to [facility] with ataxia, difficulty with speech, and a right facial droop that began ~ 2 months ago but has worsened in the past 24 hours. Initial NIH was 4 when he arrived in the ED. He is currently on room air and has a regular diet and thin liquids. Family reports no issues with swallowing, but continues with confusion and slurred speech. PMH significant for hypothyroidism , HTN, HLD. Rehab Services Assessed Speech therapy Dysphagia Assess/Goals/Plan Assessment Date of Evaluation: 08/30/22 Evaluation Type Initial Certification Assessment/Problems CVA vs. TIA per MD order. Does Patient Qualify for Service No Qualify/Failure Comment Based on the results of the CSE, no further skilled speech therapy interventions for dysphagia are warranted at this time. Recommendations PHYSICIAN CERTIFICATION: The specified therapy services are required, authorized, and reviewed every 30 days. Diet Recommendations Normal Liquid Type Recommendations Normal/Thin Dysphagia Swallow Precautions/Strategies Sitting Upright (90 deg),Small Bites and Sips,Alternate Liquids/Solids Place Food on Either side of Mouth Plan Pt/Guardian verbally ack understanding Yes of dx/prognosis/goals Pt/Guardian verbally ack understanding Yes of/consent to tx prog G -code Required No Education Instructions provided CSE and speech/language/cog eval results and recommendations discussed with pt, family, care management, and nursing who expressed understanding. Pt/Caregiver able to recall information Able to recall/restate Reinforcement needed No General Information General Current Food Consistancy Regular,Thin Liquids Oxygen Status Room Air Facial Symm
--- NOTE | 2022-08-30 20:19 | PC.NURSE ---
Pt provided with urinal and notified we needed a urine sample at this time. Pt verbalized understanding.
[2022-08-31] VITALS: PULSE 50
[2022-08-31 04:00] VITALS: BP 148/78; PULSE 58; PULSE 60; RESP 20; TEMP 36.6; O2SAT 96; BMI 33.3
[2022-08-31 06:19] LABS: Chloride 106 mmol/L (98-107); Potassium 3.8 mmoL/L (3.5-5.1); Sodium 141 mmol/L (136-145)
--- NOTE | 2022-08-31 06:20 | PC.NURSE ---
Pt has been slightly confused t/o shiftm able to answer majority of questions correctly. No left sided weakness or facial droop noted. Pt has slept well t/o night. Ambulating to BR. Pt has been made aware of need for urine sample multiple times but has not used urinal t/o night.
[2022-08-31 06:22] LABS: Anion Gap 11.8 mEq/L (5-15); Basophils % 0.6 % (0.1-2.0); Blood Urea Nitrogen 13 mg/dl (9-20); Calcium 8.2 mg/dl (8.4-10.2); Carbon Dioxide 27 mmol/L (22.0-30.0); Cholesterol 195 mg/dl (140-200); Creatinine Clearance Estimated 89 mL/min (50-200); Eosinophils # 0.2 K/mm3 (0.0-0.4); Eosinophils % 3.1 % (0.1-12.0); Estimated Glomerular Filt Rate 72 ml/min (>60); GFR (African American) 88 ML/MIN (>60); Glucose 111 mg/dl (74-100); Hematocrit 40.7 % (42.0-52.0); Hemoglobin 13.7 g/dL (14.1-18.0); Lymphocytes # 2.5 K/mm3 (0.7-4.5); Lymphocytes % 38.6 % (10-50); Mean Corpuscular HGB Conc 33.6 g/dL (31.8-35.4); Mean Corpuscular Hemoglobin 32.8 pg (27.0-31.2); Mean Corpuscular Volume 97.5 fl (80-94); Mean Platelet Volume 8.4 fl (7.4-10.4); Monocytes # 0.5 K/mm3 (0.1-1.0); Monocytes % 7.8 % (1.7-9.3); Neutrophils # 3.2 K/mm3 (1.8-7.8); Neutrophils % 49.8 % (37.0-80.0); Platelet Count 186 K/mm3 (142-424); Red Blood Count 4.17 M/mm3 (4.60-6.20); Red Cell Distribution Width 13.3 % (11.5-17.5); Triglycerides 198 mg/dl (30-150); VLDL Cholesterol 40 mg/dL (0-40); White Blood Count 6.5 K/mm3 (4.8-10.8)
[2022-08-31 06:23] LABS: Chol/HDL Ratio 6.3 (1-3.5); HDL Cholesterol 31 mg/dl (40-60)
[2022-08-31 06:33] LABS: Direct LDL Cholesterol 112.42 mg/dL (100-129)
[2022-08-31 06:51] LABS: Microscopic, Urine URINE MICROSCOPIC (MICROSCOPIC)
[2022-08-31 06:54] LABS: Appearance,Urine CLEAR (Clear); Bilirubin,Urine Negative (Negative); Blood, Urine Negative (Negative); Color,Urine YELLOW (Yellow); Glucose,Urine (UA) Negative (Negative); Ketones,Urine Negative (Negative); Leukocyte Esterase,Urine Negative (Negative); Nitrate,Urine Negative (Negative); PH,Urine 6.5 (5.0-8.5); Protein,Urine Negative (Negative); Urobilinogen,Urine 0.2 EU/dl (0.2)
[2022-08-31 07:05] LABS: Bacteria,Urine Trace /lpf; Squamous Epithelial Cell,Urine Occasional #/hpf (0-5)
[2022-08-31 08:00] VITALS: BP 146/65; PULSE 60; PULSE 64; RESP 20; TEMP 36.4; O2SAT 95
--- NOTE | 2022-08-31 09:49 | EXP.DC.SUM ---
General Admission date:: 08/30/22 Discharge date: 08/31/22 HPI HPI HPI: Patient with past medical history of hypothyroidism, hypertension, hyperlipidemia presents with ataxia, speech problems, and right facial droop. Patient's 3 sons and daughter present during evaluation by Dr. Taylor. Daughter and family state that right facial droop has occurred for over 2 months. Family agree facial droop has gotten worse over past 24 hours. Patient reports going to bed around 10 PM yesterday, and awaking with speech/walking issues. Patient thinks he awoke around 6 AM, then went to work at 8 AM. Patient's son present with patient at 6 AM, and confirmed patient ataxia/right facial droop issues. Speech difficulties and ataxia worsened at work around 8 AM, and patient brought to hospital for evaluation. Patient's admission NIH score 4, with [facility] neurology service consulted. Patient deemed outside tPA window, CTA head/neck showed no large vascular occlusion, and CT brain showed no hemorrhage or mass effect. Patient subsequently deemed appropriate for admission to [facility], and admitted for acute/subacute CVA evaluation. Persistent right facial droop, and right lower extremity weakness noted by Dr. Taylor during ED evaluation. Denies fevers, sick contacts, chills, diarrhea, chest pain, shortness of breath, or abdominal pain. Hospital Course Hospital Course Hospital Course: Patient admitted with confusion, speech abnormalities family patient discharged home and can atorvastatin, right facial droop and right lower extremity weakness. Patient had MRI brain done during hospitalization showing acute CVA. Patient received PT/OT services during hospitalization which deemed patient appropriate for home health PT/OT. Patient's facial droop, right lower extremity weakness, confusion, and speech abnormalities all improved during hospitalization. Aspirin, Plavix therapy. Patient also advised about elevated primary care physician and neurology on outpatient basis. Patient advised to refrain from driving until patient's family deemed him safe to drive without supervision. Patient denied visual deficits throughout hospitalization. Exam Data for Last 24 hours Vital signs and Labs for Last 24 Hours: Temp Pulse Resp BP Pulse Ox 97.6 F 64 20 146/65 H 95 08/31/22 08:00 08/31/22 08:00 08/31/22 08:00 08/31/22 08:00 08/31/22 08:00 Laboratory Results - last 24 hr 08/30/22 08:56: TSH 3.53, Thyroxine (T4) 11.7 H 08/30/22 08:56: Hemoglobin A1c 5.4 08/30/22 10:15: SARS-CoV-2 (PCR) Not detected, Influenza A Untype (PCR) Not detected, Influenza Type B (PCR) Not detected 08/31/22 05:28: WBC 6.5, RBC 4.17 L, Hgb 13.7 L, Hct 40.7 L, MCV 97.5 H, MCH 32.8 H, MCHC 33.6, RDW 13.3, Plt Count 186, MPV 8.4, Neut % (Auto) 49.8, Lymph % (Auto) 38.6, [place] % (Auto) 7.8, Eos % (Auto) 3.1, Baso % (Auto) 0.6, Neut # (Auto) 3.2, Lymph # (Auto) 2.5, [place] # (Auto) 0.5, Eos # (Auto) 0.2, Baso # (Auto) 0.0 08/31/22 05:28: Sodium 141, Potassium 3.8, Chloride 106, Carbon Dioxide 27, Anion Gap 11.8, BUN 13, Creatinine 1.00, Estimated Creat Clear 89, Estimated GFR 72, Est GFR ( Amer) 88, Glucose 111 H, Calcium 8.2 L, Magnesium 2.0, Triglycerides 198 H, Cholesterol 195, LDL Cholesterol Direct 112.42, VLDL Cholesterol 40, HDL Cholesterol 31 L, Cholesterol/HDL Ratio 6.3 H 08/31/22 06:45: Urine Color Yellow, Urine Appearance Clear, Urine pH 6.5, Ur Specific [place] 1.020, Urine Protein Negative, Urine Glucose (UA) Negative, Urine Ketones Negative, Urine Blood Negative, Urine Nitrate Negative, Urine Bilirubin Negative, Urine Urobilinogen 0.2, Ur Leukocyte Esterase Negative, Urine RBC None, Urine WBC None, Ur Squamous Epith Cells Occasional, Urine Bacteria Trace I & O for Last 24 hours: Intake & Output 08/28/22 08/29/22 08/30/22 08/31/22 23:59 23:59 23:59 23:59 Intake Total 60 / 60 480 / 480 Output Total 400 / 400 Balance 60 / 60 80 / 80 Weigh
--- NOTE | 2022-08-31 10:05 | SW/DCPLANNER ---
Addendum entered by aVishali Yanez 08/31/22 11:32: Dorcas mensah/ [facility] stated that services will begin tomorrow 09/01/22. Original Note: PT/OT evaluated this patient and recommended home with home health services. Patient is agreeable to home health services and prefers to use [facility]: patient information/order will be faxed this AM. Patient will discharge home today.
--- NOTE | 2022-08-31 10:50 | HMH.PHAINT1 ---
Pharmacy Intervention Comments: DISCHARGE COUNSELLED PATIENTS ABOUT AT HOME MEDS: -ASPIRIN -ATORVASTATIN -PLAVIX NO QUESTIONS AT THIS TIME -NERY POOLE, PHARM STUDENT
--- NOTE | 2022-09-01 12:48 | CARE MANAGER ---
Contacted patient related to hospital discharge. He states he is feeling fine. 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 Denies any questions or concerns. AVIS Beauchamp
== END 2022-08-31 11:29 | disposition home health service (06) ==
LOC: ER 09:42 → 2ND 10:29
PROVIDERS: Admitting Provider Internal Medicine; Emergency Provider Emergency Medicine; PCP Family Medicine; Visit Provider Internal Medicine
DX: I61.0 Nontraumatic intracerebral hemorrhage in hemisphere, subcortical (principal); E03.9 Hypothyroidism, unspecified; I10 Essential (primary) hypertension; F17.210 Nicotine dependence, cigarettes, uncomplicated; E78.5 Hyperlipidemia, unspecified; Z79.899 Other long term (current) drug therapy; R29.704 NIHSS score 4; R27.0 Ataxia, unspecified; R29.810 Facial weakness; R47.1 Dysarthria and anarthria; G81.91 Hemiplegia, unspecified affecting right dominant side; R13.12 Dysphagia, oropharyngeal phase; I63.512 Cerebral infarction due to unspecified occlusion or stenosis of left middle cerebral artery
CPT/HCPCS: G0378; 36415; 70450; 70496; 70498; 70551; 71045; 80048; 80053; 80061; 81001; 83036; 83735; 84436; 84443; 84484; 85025; 85610; 85730; 87635; 87636; 92523; 92610; 93005; 93306; 97163; 97165; 99285; C9803; Q9967; U0003; U0005

== ENCOUNTER 2022-09-17 07:51 | Outpatient (RCR) | payer MEDICARE, OTHER, SELFPAY ==
--- NOTE | 2022-09-17 08:36 | HMH.PTOPEV ---
PT Outpatient Evaluation Rehab PT Outpatient Evaluation Start: 09/17/22 07:58 Freq: Status: Active Protocol: Document 09/17/22 08:03 PARI (Rec: 09/17/22 08:35 PARI [id number]) E-signed By Tessy Mustafa, PT Outpatient Therapy Subjective History Subjective History Pt presents to the PT clinic with reports of having a stroke ~2 weeks ago. Pt reports he presented to [facility] ED with reports of R sided weakness, confusion, and facial droop. Pt reports he stayed in the hospital for 1 night and then returned home. Pt reports that he lives at home with his son. Pt reports that he feels like his strength is back to normal. Pt reports that he feels like his balance is pretty good also. PMH: HTN, HLD Chief Complaint Other Prior Functional Limitations None Current Functional Limitations None Hip/Knee Eval MMT right Hip Flexion Strength Grade 5 Normal Hip Abduction Strength Grade 5 Normal Hip Adduction Strength Grade 5 Normal Knee Extension Strength Grade 5 Normal Knee Flexion Strength Grade 5 Normal Ankle/Foot Eval MMT Ankle Dorsiflexion Strength Grade 5 Normal Ankle Plantarflexion Strength Grade 5 Normal Balance Eval Prior Functional Limitations Prior Functional [place] Level FNF test WNL HKS test WNL Hx of Falls Hx Falls No Gait/Posture Asssessment General Gait Observation No Deviations/Normal Assistive Devices None / NA Level of Transfer Assist Independent Hip Observation in Gait Swing No Deviation Hip Observation in Gait Stance No Deviation Ankle/Foot Observation in Gait Swing No Deviation Ankle/Foot Observation in Gait Stance No Deviation Body Alignment Posture Relaxed Timed Up and Go Test 3. Is the Timed Up and Go Test result < yes 12 seconds? RAVI Balance Evaluation Sitting to Standing Ability Independent w/out Hands Unsupported Stance Safely- 2 minutes Sitting Unsupported, Feet on Floor Safely- 2 minutes Standing to Sitting Ability Safely, Minimal Hand Use Transfer Ability Safely, Minimal Hand Use Unsupported Stance- Eyes Closed Safely, 10 seconds Unsupported Stance- Eyes Open Independent, 1 minute Reaching Forward Standing Safely, 5 inches Pick- Up Object From Floor Independent/Safe Look Behind Shoulder
== END 2022-09-17 07:55 | disposition home or self-care (01) ==
LOC: PT 07:51
PROVIDERS: Visit Provider Family Medicine
DX: I63.512 Cerebral infarction due to unspecified occlusion or stenosis of left middle cerebral artery (principal)
CPT/HCPCS: 97163

== ENCOUNTER 2022-09-17 07:55 | Outpatient (RCR) | payer MEDICARE, OTHER, SELFPAY ==
--- NOTE | 2022-09-17 11:12 | HMH.OTOPEV ---
OT Inpatient Evaluation Rehab OT Outpatient Eval Start: 09/17/22 11:05 Freq: Status: Active Protocol: Document 09/17/22 11:05 ZENY (Rec: 09/17/22 11:11 [id number] [id number]) E-signed By Sadia Thayer, OT Outpatient Therapy Subjective History Subjective History Patient with past medical history of hypothyroidism, hypertension, hyperlipidemia presents with ataxia, speech problems, and right facial droop. Patient's 3 sons and daughter present during evaluation by Dr. Taylor. Daughter and family state that right facial droop has occurred for over 2 months. Family agree facial droop has gotten worse over past 24 hours. Patient reports going to bed around 10 PM yesterday, and awaking with speech/ walking issues. Patient thinks he awoke around 6 AM, then went to work at 8 AM. Patient's son present with patient at 6 AM, and confirmed patient ataxia/right facial droop issues. Speech difficulties and ataxia worsened at work around 8 AM, and patient brought to hospital for evaluation. Patient's admission NIH score 4, with [facility] neurology service consulted. Patient deemed outside tPA window, CTA head/neck showed no large vascular occlusion, and CT brain showed no hemorrhage or mass effect. Patient subsequently deemed appropriate for admission to [facility], and admitted for acute/ subacute CVA evaluation. Persistent right facial droop, and right lower extremity weakness noted by Dr. Taylor during ED evaluation. Denies fevers, sick contacts, chills, diarrhea, chest p
== END 2022-09-17 07:59 | disposition home or self-care (01) ==
LOC: OT 07:55
PROVIDERS: Visit Provider Family Medicine
DX: I63.512 Cerebral infarction due to unspecified occlusion or stenosis of left middle cerebral artery (principal)
CPT/HCPCS: 97165

== ENCOUNTER → 2022-11-08 09:13 | Outpatient (CLI) | payer MEDICARE, OTHER, SELFPAY | PROVIDERS: PCP Family Medicine; Visit Provider Specialist | DX: R41.3 Other amnesia (principal); I63.9 Cerebral infarction, unspecified | CPT/HCPCS: 95819 ==

== ENCOUNTER 2022-11-10 07:48 | Outpatient (CLI) | payer MEDICARE, OTHER, SELFPAY ==
[2022-11-10 09:48] LABS: PHA INR Fingerstick 1.8 (0.9-1.1)
== END 2022-11-10 09:56 ==
LOC: ACC 07:48
PROVIDERS: PCP Family Medicine; Visit Provider Family Medicine
DX: Z79.01 Long term (current) use of anticoagulants (principal); Z51.81 Encounter for therapeutic drug level monitoring
CPT/HCPCS: 85610; 99211; G0463

== ENCOUNTER → 2022-11-24 14:32 | Outpatient (CLI) | payer MEDICARE, OTHER, SELFPAY ==
[2022-11-24 15:49] LABS: Chloride 107 mmol/L (98-107); Potassium 3.9 mmoL/L (3.5-5.1); Sodium 141 mmol/L (136-145)
[2022-11-24 15:51] LABS: Alanine Aminotransferase 73 U/L (12-78); Aspartate Amino Transferase 92 U/L (17-59); Blood Urea Nitrogen 15 mg/dl (9-20); Estimated Glomerular Filt Rate 82 ml/min (>60); GFR (African American) 99 ML/MIN (>60)
[2022-11-24 15:52] LABS: Albumin Level 3.8 g/dl (3.5-5.0); Albumin/Globulin Ratio 1.4 (1.1-1.8); Alkaline Phosphatase 119 U/L (38-126); Anion Gap 10.9 mEq/L (5-15); Bilirubin,Total 0.6 mg/dl (0.2-1.3); Calcium 9.1 mg/dl (8.4-10.2); Carbon Dioxide 27 mmol/L (22.0-30.0); Globulin 2.8 g/dL (1.3-3.2); Glucose 93 mg/dl (74-100); Total Protein,Serum 6.6 g/dl (6.3-8.2)
== END ==
PROVIDERS: PCP Family Medicine; Visit Provider Nurse Practitioner Family
DX: I10 Essential (primary) hypertension (principal); I48.91 Unspecified atrial fibrillation; I63.9 Cerebral infarction, unspecified; R29.2 Abnormal reflex
CPT/HCPCS: 36415; 80053

== ENCOUNTER 2022-12-03 07:49 | Outpatient (CLI) | payer MEDICARE, OTHER, SELFPAY ==
[2022-12-03 10:23] LABS: PHA INR Fingerstick 2.3 (0.9-1.1)
== END 2022-12-03 10:30 ==
LOC: ACC 07:50
PROVIDERS: PCP Family Medicine; Visit Provider Family Medicine
DX: Z79.01 Long term (current) use of anticoagulants (principal); Z51.81 Encounter for therapeutic drug level monitoring; I48.91 Unspecified atrial fibrillation
CPT/HCPCS: 85610; 99211; G0463

== ENCOUNTER → 2022-12-06 06:45 | Outpatient (CLI) | payer MEDICARE, OTHER, SELFPAY ==
--- NOTE | 2022-12-06 07:27 | MR_ITS ---
FINAL REPORT TECHNIQUE: Multiplanar and multisequence imaging of the brain was obtained before and after contrast injection. CLINICAL HISTORY: Monitoring status post CVA, confusion. history stroke august 30. blurred vision and dizziness since. COMPARISON: 08/30/2022 FINDINGS: There are bilateral subdural hemorrhages that were not seen on the prior exam of August 2022. These measure 10 mm on each side, and the signal suggests that they are subacute. There is no mass effect or midline shift. An evolving left basal ganglia infarct is present. Small foci of periventricular and subcortical white matter are nonspecific. No hydrocephalus. The cerebellum and brainstem have a normal appearance. There are no areas of restricted diffusion on diffusion weighted images to suggest acute infarct. Opacification of left mastoid air cells is stable. Post contrast images reveal no pathologic contrast enhancement. IMPRESSION: Bilateral subdural hemorrhages, new since the prior MRI. These measured 10 mm in thickness, and appears subacute. Evolving left basal ganglia infarct, with no new areas of restricted diffusion to suggest acute infarcts. Periventricular and subcortical T2 abnormality, likely related to changes of chronic small vessel ischemia. Reviewed, Interpreted and Dictated by Lianna Mullins MD Transcribed by Dixie Rob Authenticated and [facility]
== END ==
PROVIDERS: PCP Family Medicine; Visit Provider Nurse Practitioner Family
DX: I63.9 Cerebral infarction, unspecified (principal); R41.3 Other amnesia
CPT/HCPCS: 70553; A9576

== ENCOUNTER → 2022-12-07 12:57 | Outpatient (CLI) | payer MEDICARE, OTHER, SELFPAY ==
[2022-12-07 13:47] LABS: INR 2.12 (0.9-1.1); Prothrombin Time 21.8 seconds (10.1-12.5)
== END ==
PROVIDERS: PCP Family Medicine; Visit Provider Nurse Practitioner Family
DX: I48.0 Paroxysmal atrial fibrillation (principal); I48.91 Unspecified atrial fibrillation; I62.00 Nontraumatic subdural hemorrhage, unspecified; Z79.01 Long term (current) use of anticoagulants; I10 Essential (primary) hypertension
CPT/HCPCS: 36415; 85610

== ENCOUNTER → 2022-12-17 06:57 | Outpatient (CLI) | payer MEDICARE, OTHER, SELFPAY ==
--- NOTE | 2022-12-17 07:03 | CT_ITS ---
FINAL REPORT CLINICAL HISTORY: SUBDURAL HEMATOMA COMPARISON: MRI dated 12/06/2022 FINDINGS: Axial images of the head were obtained without contrast. Coronal and sagittal reformatted images were also obtained. This study was performed with techniques to keep radiation doses as low as reasonably achievable (ALARA). Individualized dose reduction techniques using automated exposure control or adjustment of mA and/or kV according to the patient's size were employed. There is generalized age appropriate atrophy. There is partial improvement in the size of the chronic subdural hematomas seen on the prior MR of November 2022. On the right side the subdural measures 5 mm in thickness as opposed to 10 mm on the prior exam, and on the left side measures 6 mm in thickness as opposed to 10 mm on the prior exam. A low density is present in the left basal ganglia compatible with a remote infarct. There is no evidence of intracranial hemorrhage or mass. The ventricular size is within normal limits. There is no evidence of shift of the midline structures. No skull abnormality is seen on the bone window images. IMPRESSION: No acute intracranial abnormality. Partial improvement in the size of the chronic subdural hematomas when compared to the prior MR of November 2022. Reviewed, Interpreted and Dictated by Jj Sequeira III, MD Transcribed by Dixie Rob Authenticated and [facility]
== END ==
PROVIDERS: PCP Family Medicine; Visit Provider Neurological Surgery
DX: S06.5X0A Traumatic subdural hemorrhage without loss of consciousness, initial encounter (principal)
CPT/HCPCS: 70450

== ENCOUNTER → 2022-12-30 15:02 | Outpatient (CLI) | payer MEDICARE, OTHER, SELFPAY ==
--- NOTE | 2022-12-30 15:08 | CT_ITS ---
FINAL REPORT CLINICAL HISTORY: SUBDURAL HEMATOMA, FINDINGS: Axial images of the head were obtained without contrast. Coronal reformatted images were also obtained. This study was performed with techniques to keep radiation doses as low as reasonably achievable (ALARA). Individualized dose reduction techniques using automated exposure control or adjustment of mA and/or kV according to the patient''s size were employed. There are bilateral chronic basal ganglier infarcts. Bilateral, chronic subdural hematomas. Hematoma on the right measures 3 cm, previously measured 5 cm. Hematoma in the left measures 4 cm, previously measured 6 cm. There is generalized age-appropriate atrophy. Periventricular low-attenuation areas are seen consistent with mild chronic ischemic changes. There is no evidence of intracranial hemorrhage or mass. There is no evidence of acute infarct. There is no evidence of shift of the midline structures. No skull abnormality is seen on the bone window images. IMPRESSION: Atrophy and mild periventricular chronic ischemic changes. Decreasing size of chronic bilateral subdural hematomas. No acute intracranial abnormality identified. Reviewed, Interpreted and Dictated by Jj Sequeira III, MD Transcribed by Gladys Baeza Authenticated and [facility]
== END ==
PROVIDERS: PCP Family Medicine; Visit Provider Neurological Surgery
DX: S06.5X0A Traumatic subdural hemorrhage without loss of consciousness, initial encounter (principal)
CPT/HCPCS: 70450

== ENCOUNTER 2023-01-03 08:00 | Outpatient (RCR) | payer MEDICARE, OTHER, SELFPAY ==
--- NOTE | 2022-09-17 10:59 | HMH.SLAPHASI ---
Speech & Language Evaluation Speech/Language Aphasia Evaluation Start: 09/17/22 10:03 Freq: once Status: Complete Protocol: Document 09/17/22 10:03 DIONNA (Rec: 09/17/22 10:59 DIONNA [id number]) Aphasia Assessment/Goals/Plan Assessment Date of Evaluation: 09/17/22 Evaluation Type Initial Certification Assessment/Problems Cerebral infarction/stroke per MD order. Does Patient Qualify for Service Yes Qualify/Failure Comment Based on clinical observation and assessment results, Mr. Fong would benefit from skilled speech therapy service intervention 1x/week to address cognitive-linguistic deficits. Plan Pt will be seen # times/week 1 for # weeks 12 Anticipate reaching STG in # weeks 8 Anticipate reaching LTG in # weeks 12 Pt/Guardian verbally ack understanding Yes of dx/prognosis/goals G -code Required No STG-Auditory Comprehension 3rd Element 90 STG-Reading Comprehension Reading Paragraphs & Ans Questions 80 STG-Attending/Orientation/Memory Delayed Recall 85 Attention/Concentration 90 Memory Recall 80 STG-Comparative/Linguistic Skills Thought Organization 80 Categorization Ability 90 Define Similarities/Differences 90 Sequence Events in Correct Order 90 STG-Divergent Thinking Deductive Reasoning 80 Longterm Goals Increase auditory comprehension skills Yes: 80% to communicate w/family & friends Increase cognitive skills to communicate Yes: 80% w/family & friends Education Instructions provided Speech/language/cog eval results and recommendations discussed with Mr. Fong who expressed understanding. Pt/Caregiver Able to Recall Information Able to recall/restate Reinforcement needed No Speech & Language HPI History Present Illness Description of Patient Problem Mr. Fong is a 77 y.o. male presenting to [facility] Rehab Services following discharge from [facility] Inpatient following CVA with ataxia, difficulty with speech, and a right facial droop that began ~ 2 months ago. During his stay at [facility], family reported concerns for slurred speech and continued confusion. [facility] signi
== END 2023-01-03 08:05 | disposition home or self-care (01) ==
LOC: ST 08:00
PROVIDERS: Visit Provider Family Medicine
DX: I63.512 Cerebral infarction due to unspecified occlusion or stenosis of left middle cerebral artery (principal); I69.328 Other speech and language deficits following cerebral infarction
CPT/HCPCS: 92507; 92523; 97129; 97130

== ENCOUNTER 2023-01-27 08:34 | Emergency (ER) | payer MEDICARE, OTHER, SELFPAY ==
[2023-01-27 08:50] VITALS: BP 164/85; PULSE 65; RESP 20; TEMP 36.9; O2SAT 94; BMI 35.4
--- NOTE | 2023-01-27 09:14 | EXP.UTC ---
Discharge Plan Disposition Patient Disposition: Home, Self-Care Condition: Good Prescriptions Prescriptions: New amoxicillin 500 mg capsule 500 mg PO BID 10 Days Qty: 20 0RF No Action aspirin 81 mg tablet,chewable 81 mg PO DAILY Qty: 90 0RF atorvastatin 80 mg tablet 80 mg PO HS Qty: 90 0RF fluoxetine [Prozac] 20 mg capsule 20 mg PO DAILY Qty: 90 3RF metoprolol succinate [Toprol XL] 50 mg tablet extended release 24 hr 50 mg PO DAILY Qty: 90 3RF amiodarone 400 mg tablet 400 mg PO BID Qty: 45 2RF Rx Instructions: take 400 mg twice a day for 10 days then go to once a day after that levothyroxine 75 mcg tablet 75 mcg PO DAILY Qty: 90 3RF Referrals Follow up/Referrals: Humble Upton MD [Primary Care Provider] - See instructions Activity Restrictions/Add. Instructions Additional Instructions/Restrictions: *Monitor Temp, Over the counter Motrin or Tylenol as directed/as needed Tylenol every 4 hours and Motrin every 6 hours (as long as your family doctor has told you that you can take it) for fever or pain. and straight to ER if unable to lower temp less than 101.0 after medication given *Warm salt water gargles may help to soothe the throat *Throat Lozenges? *Warm fluids like tea with honey may help to soothe the throat? *Sleep elevated *Humidifier/Vaporizer Your throat swab was sent for culture. Those results are typically sent to your primary care. Be sure to follow up in 2-3 days with your family doctor/primary care physician if no improvement so they can review those result and treat if necessary. If you don?t have a primary care doctor, I recommend you get one but in the mean time, you will have to return to a walk in clinic Follow up IMMEDIATELY for new or worsening symptoms or no Noticeable improvement over the next 48-72 hours. 911 for difficulty breathing or swallowing Clinical Impressions Clinical Impression: Pharyngitis Qualifiers: Pharyngitis/tonsillitis etiology: unspecified etiology Qualified Code(s): J02.9 - Acute pharyngitis, unspecified Instructions Patient Instructions: Sore Throat, DI for Ear Pain-Adult Discharge ED Provider: Elza Correa [facility] General Stated complaint: Lt ear pain, sore throat Mode of Arrival: Ambulatory Source of Information: Patient and Spouse Limitations: No Limitations Time Seen by Provider: 01/27/23 09:14 Description of Symptoms (Recalled from Triage Doc. by RN): PATIENT C/O LEFT EAR PAIN AND SORE THROAT X 2 WEEKS HEENT Symptoms (Recalled from RN notes): Yes Resp Symptoms (Recalled from RN notes): No Skin Symptoms (Recalled from RN notes): No MS Symptoms (Recalled from RN notes): No Functional Status (Recalled from RN notes): WNL History of Present Illness Provider Complaint: Patient states that for about two weeks he has been having pain in his left ear and throat States that it hurts and miranda in his throat when he swallows or tries to eat and drink States that he hasnt had a fever that he knows of but today when he was still complaining brought him in States that he has a touch of dementia Related Data Previous Rx's Medication Instructions Recorded aspirin 81 mg chewable tablet 81 mg PO DAILY #90 tabs 11/01/22 atorvastatin 80 mg tablet 80 mg PO HS #90 tabs 11/01/22 fluoxetine 20 mg capsule (Prozac) 20 mg PO DAILY #90 caps 11/01/22 metoprolol succinate 50 mg 50 mg PO DAILY #90 tabs 11/01/22 tablet,extended release 24 hr (Toprol XL) amiodarone 400 mg tablet 400 mg PO BID #45 tabs 12/10/22 levothyroxine 75 mcg tablet 75 mcg PO DAILY THYROID #90 tabs 12/21/22 amoxicillin 500 mg capsule 500 mg PO BID 10 days #20 caps 01/27/23 Allergies Allergy/AdvReac Type Severity Reaction Status Date / Time No Known Allergies Allergy Verified 11/24/22 13:24 Worker's Comp Is this a Worker's Comp case?: No [facility] Disclaimer: The information contained in this section m
[2023-01-27 09:25] LABS: UTC Strep Screen (Rapid) Negative (Negative)
[2023-01-27 09:46] VITALS: BP 164/85; PULSE 65; RESP 20; TEMP 36.9; O2SAT 94
== END 2023-01-27 09:48 | disposition home or self-care (01) ==
PROVIDERS: Emergency Provider Nurse Practitioner; PCP Family Medicine
DX: J02.9 Acute pharyngitis, unspecified (principal); H92.02 Otalgia, left ear; I10 Essential (primary) hypertension; E03.9 Hypothyroidism, unspecified; Z86.73 Personal history of transient ischemic attack (TIA), and cerebral infarction without residual deficits
CPT/HCPCS: 87880; 99212; 99214; G0463

== ENCOUNTER 2023-02-08 20:11 | Emergency (ER) | payer MEDICARE, OTHER, SELFPAY ==
[2023-02-08 20:12] VITALS: BP 184/105; PULSE 77; RESP 20; TEMP 37.1; O2SAT 97; BMI 34.0
--- NOTE | 2023-02-08 20:33 | HMH.EDGENADL ---
Discharge Plan Disposition Patient Disposition: Xfer Other Prescriptions Prescriptions: No Action aspirin 81 mg tablet,chewable 81 mg PO DAILY Qty: 90 0RF atorvastatin 80 mg tablet 80 mg PO HS Qty: 90 0RF fluoxetine [Prozac] 20 mg capsule 20 mg PO DAILY Qty: 90 3RF metoprolol succinate [Toprol XL] 50 mg tablet extended release 24 hr 50 mg PO DAILY Qty: 90 3RF amiodarone 400 mg tablet 400 mg PO BID Qty: 45 2RF Rx Instructions: take 400 mg twice a day for 10 days then go to once a day after that levothyroxine 75 mcg tablet 75 mcg PO DAILY Qty: 90 3RF amoxicillin 500 mg capsule 500 mg PO BID 10 Days Qty: 20 0RF Referrals Follow up/Referrals: Humble Upton MD [Primary Care Provider] - See instructions Clinical Impressions Clinical Impression: Hydronephrosis concurrent with and due to calculi of kidney and ureter, GERALD (acute kidney injury) Abdominal pain Qualifiers: Abdominal location: left lower quadrant Qualified Code(s): R10.32 - Left lower quadrant pain Instructions Patient Instructions: DI for Acute Abdominal Pain Discharge ED Provider: Girma Martinez General Adult HPI General Chief complaint: Abdominal Pain Stated complaint: abd pain, vomiting Time Seen by Provider: 02/08/23 20:23 History of Present Illness HPI narrative: 77-year-old male, history of prior stroke, A-fib,, hypertension presents with worsening left-sided pain. Patient reports that he has had left-sided lower abdominal pain for approximate last month. Patient had acute onset of more severe pain in the last couple of days which caused him to present to the hospital. He reports flank pain on the left side as well. He denies any fevers at home. He reports no changes in bowel movements, reports that they are normal and stable. Denies any urinary symptoms. Related Data Previous Rx's Medication Instructions Recorded aspirin 81 mg chewable tablet 81 mg PO DAILY #90 tabs 11/01/22 atorvastatin 80 mg tablet 80 mg PO HS #90 tabs 11/01/22 fluoxetine 20 mg capsule (Prozac) 20 mg PO DAILY #90 caps 11/01/22 metoprolol succinate 50 mg 50 mg PO DAILY #90 tabs 11/01/22 tablet,extended release 24 hr (Toprol XL) amiodarone 400 mg tablet 400 mg PO BID #45 tabs 09/29/23 levothyroxine 75 mcg tablet 75 mcg PO DAILY THYROID #90 tabs 12/21/22 amoxicillin 500 mg capsule 500 mg PO BID 10 days #20 caps 01/27/23 Allergies Allergy/AdvReac Type Severity Reaction Status Date / Time No Known Allergies Allergy Verified 11/24/22 13:24 [facility] Disclaimer: The information contained in this section may have been updated after the patient was seen, as this information can be updated by other users. Medical History (Updated 02/08/23 @ 23:43 by Girma Martinez MD) Essential hypertension Hypothyroid Stroke Surgical History (Updated 11/24/22 @ 13:25 by Elza Fox) History of colonoscopy History of hernia surgery Family History (Updated 11/24/22 @ 13:26 by Elza Fox) Other Cancer Social History Smoking Status: Never smoker second hand exposure: No alcohol intake: never substance use type: denies use current occupational status: retired Travel in the last 8 weeks: None household members: children housing: house current occupational exposures/hazards: No caffeine: Yes ROS Obtained: Yes All systems reviewed & no additional complaints except as documented Physical Exam General General appearance: alert and in distress (Secondary to pain) Head Head exam: atraumatic and normocephalic Eye Eye exam: Present normal appearance, PERRL and EOMI ENT ENT exam: Present normal oropharynx and normal external ear exam Neck Neck exam: Present normal inspection and full ROM Chest Chest inspection: Present normal inspection and symmetric chest wall rise; Absent tenderness Respiratory Respiratory exam: Present normal lung so
--- NOTE | 2023-02-08 20:53 | CT_ITS ---
PROCEDURE INFORMATION: Exam: CT Abdomen And Pelvis With Contrast Exam date and time: 02/08/2023 9:37 PM Age: 77 years old Clinical indication: Abdominal pain; Localized; Left lower quadrant (llq); Prior surgery; Surgery date: 6+ months; Surgery type: Hernia repairs; Additional info: Severe llq abd pain TECHNIQUE: Imaging protocol: Computed tomography of the abdomen and pelvis with contrast. Radiation optimization: All CT scans at this facility use at least one of these dose optimization techniques: automated exposure control; mA and/or kV adjustment per patient size (includes targeted exams where dose is matched to clinical indication); or iterative reconstruction. Contrast material: ISOVUE; Contrast volume: 75 ml; Contrast route: IV; REPORTING DATA: Count of CT and Cardiac NM exams in prior 12 months: This patient has received 5 known CTs and 0 known cardiac nuclear medicine studies in the 12 months prior to the current study. COMPARISON: CR XR CHEST PORTABLE 08/30/2022 9:22 AM FINDINGS: Lungs: In the lung bases there is scattered atelectasis. Diaphragm: Small hiatal hernia. Liver: Normal. No mass. Gallbladder and bile ducts: Cholecystectomy. Pancreas: Normal. No ductal dilation. Spleen: Normal. No splenomegaly. Adrenal glands: Normal. No mass. Kidneys and ureters: Severe left hydronephrosis and perinephric stranding and ureteral dilatation secondary to a 6.3 mm stone in the mid left ureter. 1.3 cm simple cyst right kidney requiring no further follow-up. Stomach and bowel: Unremarkable. No obstruction. No mucosal thickening. Appendix: No evidence of appendicitis. Intraperitoneal space: Unremarkable. No free air. No significant fluid collection. Vasculature: Unremarkable. No abdominal aortic aneurysm. Lymph nodes: Unremarkable. No enlarged lymph nodes. Urinary bladder: Unremarkable as visualized. Reproductive: Unremarkable as visualized. Bones/joints: Unremarkable. No acute fracture. Soft tissues: Unremarkable. IMPRESSION: Severe left hydronephrosis and perinephric stranding and ureteral dilatation secondary to a 6.3 mm stone in the mid left ureter.
[2023-02-08 21:03] LABS: Basophils % 0.3 % (0.1-2.0); Eosinophils % 0.4 % (0.1-12.0); Hematocrit 45.9 % (42.0-52.0); Hemoglobin 15.1 g/dL (14.1-18.0); Lymphocytes # 1.6 K/mm3 (0.7-4.5); Lymphocytes % 15.2 % (10-50); Mean Corpuscular HGB Conc 32.8 g/dL (31.8-35.4); Mean Corpuscular Hemoglobin 33.7 pg (27.0-31.2); Mean Corpuscular Volume 102.7 fl (80-94); Mean Platelet Volume 8.1 fl (7.4-10.4); Monocytes # 0.6 K/mm3 (0.1-1.0); Monocytes % 5.9 % (1.7-9.3); Neutrophils % 78.2 % (37.0-80.0); Platelet Count 256 K/mm3 (142-424); Red Blood Count 4.46 M/mm3 (4.60-6.20); Red Cell Distribution Width 13.8 % (11.5-17.5); White Blood Count 10.3 K/mm3 (4.8-10.8)
[2023-02-08 21:04] LABS: Chloride 108 mmol/L (98-107); Potassium 3.4 mmoL/L (3.5-5.1); Sodium 142 mmol/L (136-145)
[2023-02-08 21:06] LABS: Alanine Aminotransferase 88 U/L (12-78); Alkaline Phosphatase 114 U/L (38-126); Aspartate Amino Transferase 81 U/L (17-59); Bilirubin,Total 0.8 mg/dl (0.2-1.3); Blood Urea Nitrogen 22 mg/dl (9-20); Creatinine Clearance Estimated 61 mL/min (50-200); Estimated Glomerular Filt Rate 45 ml/min (>60); GFR (African American) 55 ML/MIN (>60)
[2023-02-08 21:07] LABS: Albumin Level 4.4 g/dl (3.5-5.0); Albumin/Globulin Ratio 1.3 (1.1-1.8); Anion Gap 11.4 mEq/L (5-15); Carbon Dioxide 26 mmol/L (22.0-30.0); Globulin 3.4 g/dL (1.3-3.2); Glucose 137 mg/dl (74-100); Lipase 94 U/L (23-300); Total Protein,Serum 7.8 g/dl (6.3-8.2)
[2023-02-08 21:30] LABS: Lactic Acid 2.3 mmol/L (0.7-2.1)
--- NOTE | 2023-02-08 21:32 | PC.NURSE ---
patient gone to CT at this time.
[2023-02-08 21:46] VITALS: BP 155/93; PULSE 83; O2SAT 95
[2023-02-08 22:00] VITALS: BP 170/96; PULSE 85; O2SAT 92
[2023-02-08 22:30] VITALS: BP 152/85; PULSE 80; O2SAT 91
--- NOTE | 2023-02-08 22:34 | PC.NURSE ---
Called [facility] about possible transfer for urology per Dr Martinez.CR
[2023-02-08 23:12] LABS: Microscopic, Urine URINE MICROSCOPIC (MICROSCOPIC)
[2023-02-08 23:14] LABS: Appearance,Urine CLEAR (Clear); Bilirubin,Urine Negative (Negative); Blood, Urine 2+ (Negative); Color,Urine YELLOW (Yellow); Glucose,Urine (UA) Negative (Negative); Ketones,Urine Negative (Negative); Leukocyte Esterase,Urine Negative (Negative); Nitrate,Urine Negative (Negative); PH,Urine 5.5 (5.0-8.5); Protein,Urine 1+ (Negative); Specific Gravity, Urine >= 1.030 (1.005-1.030); Urobilinogen,Urine 0.2 EU/dl (0.2)
[2023-02-08 23:15] VITALS: BP 178/104; PULSE 87; O2SAT 96
--- NOTE | 2023-02-08 23:15 | PC.NURSE ---
[facility] states they have no beds available.CR
[2023-02-08 23:19] LABS: Squamous Epithelial Cell,Urine Occasional #/hpf (0-5)
[2023-02-08 23:20] LABS: Calcium Oxalate Crystals,Urine 1+ /lpf
--- NOTE | 2023-02-08 23:20 | PC.NURSE ---
Called [facility] about bed availability for Urology. Spoke with Sylvester. Checking into bed availability. CR
--- NOTE | 2023-02-08 23:23 | PC.NURSE ---
Call from [facility], Images have not gone over. Spoke with Vaishali she will resend
--- NOTE | 2023-02-08 23:50 | PC.NURSE ---
Accepted by Dr Blum at [facility]. Med surg bed. CR
[2023-02-09] VITALS: BP 182/105; PULSE 86; O2SAT 96
--- NOTE | 2023-02-09 00:02 | ECG_ITS ---
APPROVED REPORT Exam: Resting ECG HR:81 bpm ECG Measurements Heart Rate 81 AXES IL 195 P 24 QRSd 89 QRS -6 QT 395 T -1 QTc 433 Conclusion SINUS RHYTHM NORMAL ECG UNCONFIRMED REPORT Electronically signed by : Syed Rivers MD 02/09/2023 18:25:40
--- NOTE | 2023-02-09 00:13 | PC.NURSE ---
Report called to Misael RN at [facility] [phone] and EMS contacted at this time for kota
[2023-02-09 00:30] VITALS: BP 170/103; PULSE 90; O2SAT 94
[2023-02-09 00:45] VITALS: BP 170/103; PULSE 89; RESP 16; TEMP 36.4; O2SAT 94
== END 2023-02-09 00:46 | disposition other institution (70) ==
PROVIDERS: Emergency Provider Emergency Medicine; PCP Family Medicine
DX: N13.2 Hydronephrosis with renal and ureteral calculous obstruction (principal); R10.32 Left lower quadrant pain; M54.59 Other low back pain; N17.9 Acute kidney failure, unspecified; R11.10 Vomiting, unspecified; I48.0 Paroxysmal atrial fibrillation; I10 Essential (primary) hypertension; E03.9 Hypothyroidism, unspecified; Z79.01 Long term (current) use of anticoagulants; Z86.73 Personal history of transient ischemic attack (TIA), and cerebral infarction without residual deficits; R14.0 Abdominal distension (gaseous)
CPT/HCPCS: 36415; 74177; 80053; 81001; 83605; 83690; 85025; 87040; 93005; 96361; 96365; 96375; 96376; 99285; J0696; J2405; Q9967

== ENCOUNTER → 2023-02-17 07:28 | Outpatient (CLI) | payer MEDICARE, OTHER, SELFPAY ==
[2023-02-17 18:29] LABS: Basophils % 0.2 % (0.1-2.0); Eosinophils # 0.1 K/mm3 (0.0-0.4); Eosinophils % 1.9 % (0.1-12.0); Hematocrit 38.6 % (42.0-52.0); Hemoglobin 14.2 g/dL (14.1-18.0); Lymphocytes # 1.2 K/mm3 (0.7-4.5); Lymphocytes % 24.3 % (10-50); Mean Corpuscular HGB Conc 36.7 g/dL (31.8-35.4); Mean Corpuscular Hemoglobin 38.2 pg (27.0-31.2); Mean Corpuscular Volume 104.1 fl (80-94); Mean Platelet Volume 9.3 fl (7.4-10.4); Monocytes # 0.4 K/mm3 (0.1-1.0); Monocytes % 7.8 % (1.7-9.3); Neutrophils # 3.2 K/mm3 (1.8-7.8); Neutrophils % 65.7 % (37.0-80.0); Platelet Count 310 K/mm3 (142-424); Red Blood Count 3.71 M/mm3 (4.60-6.20); Red Cell Distribution Width 15.1 % (11.5-17.5); White Blood Count 4.8 K/mm3 (4.8-10.8)
[2023-02-17 20:10] LABS: Alanine Aminotransferase 54 U/L (12-78); Albumin Level 4.1 g/dl (3.5-5.0); Albumin/Globulin Ratio 1.4 (1.1-1.8); Alkaline Phosphatase 107 U/L (38-126); Anion Gap 11.1 mEq/L (5-15); Aspartate Amino Transferase 70 U/L (17-59); Bilirubin,Total 0.6 mg/dl (0.2-1.3); Blood Urea Nitrogen 24 mg/dl (9-20); Calcium 8.7 mg/dl (8.4-10.2); Carbon Dioxide 26 mmol/L (22.0-30.0); Chloride 107 mmol/L (98-107); Estimated Glomerular Filt Rate 49 ml/min (>60); GFR (African American) 59 ML/MIN (>60); Glucose 118 mg/dl (74-100); Potassium 4.1 mmoL/L (3.5-5.1); Sodium 140 mmol/L (136-145); Total Protein,Serum 7.1 g/dl (6.3-8.2)
[2023-02-19 10:05] LABS: Antistreptolysin O Ab 36.2 IU/mL (0.0-200.0)
== END ==
PROVIDERS: PCP Nurse Practitioner; Visit Provider Nurse Practitioner
DX: R59.0 Localized enlarged lymph nodes (principal); R59.9 Enlarged lymph nodes, unspecified
CPT/HCPCS: 80053; 85025; 86060

== ENCOUNTER → 2023-03-01 09:01 | Outpatient (CLI) | payer MEDICARE, OTHER, SELFPAY ==
--- NOTE | 2023-03-01 09:01 | CT_ITS ---
FINAL REPORT TECHNIQUE: Thin section axial CT images with coronal reformats were obtained through the neck after the administration of IV contrast. This study was performed with techniques to keep radiation doses as low as reasonably achievable (ALARA). Individualized dose reduction techniques using automated exposure control or adjustment of mA and/or kV according to the patient''s size were employed. CLINICAL HISTORY: left cervical/submandibular LAD, swelling and pain in left side of neck and jaw, concern for infection FINDINGS: There is no adenopathy, fluid collection or mass lesion present. There is mucoperiosteal thickening in the right maxillary sinus. There is no air-fluid level. The submandibular glands are symmetric. There is advanced vascular calcification in the proximal left ICA. There is motion artifact at the level of the proximal ICA which obscures optimal visualization. Please see report from prior CTA. IMPRESSION: No acute process. Reviewed, Interpreted and Dictated by Christiano Cartwright MD Transcribed by Bob Allison Authenticated and [facility]
== END ==
PROVIDERS: PCP Nurse Practitioner; Visit Provider Nurse Practitioner
DX: R59.0 Localized enlarged lymph nodes (principal)
CPT/HCPCS: 70491; Q9967

== ENCOUNTER 2023-03-22 13:58 | Outpatient (CLI) | payer MEDICARE, OTHER, SELFPAY ==
--- NOTE | 2023-03-22 13:59 | CA_ITS ---
FINAL REPORT TECHNIQUE: Color Doppler, duplex Doppler and schmidt scale sonography of the bilateral neck vasculature was performed. Velocities were measured in the carotid arteries. Stenosis evaluation based on velocity criteria. CLINICAL HISTORY: AGUSTIN,CALCIFICATIONS SEEN ON CT,CVA COMPARISON: None FINDINGS: The peak systolic velocity of the right common carotid artery is 81 cm/sec and internal carotid artery 103 cm/sec. The diastolic velocity in the internal carotid artery is 26 cm/sec. The ICA/CCA ratio is 1.28. Visually, a small amount of plaque is seen. These findings are consistent with less than 50% stenosis. The external carotid artery is patent. The right vertebral artery is patent with antegrade flow. The peak systolic velocity of the left common carotid artery is 85 cm/sec and internal carotid artery 148 cm/sec. The diastolic velocity in the internal carotid artery is 25 cm/sec. The ICA/CCA ratio is 2.3. Visually, a small amount of plaque is seen. These findings are consistent with less than 50% stenosis. The external carotid artery is patent. The left vertebral artery is patent with antegrade flow. IMPRESSION: Less than 50% luminal diameter stenosis in either carotid bifurcation. Bilateral patent vertebral arteries. If indicated, CTA or MRA could further evaluate. Reviewed, Interpreted and Dictated by Jj Sequeira III, MD Transcribed by Dixie Rob Authenticated and [facility]
== END 2023-03-22 23:59 ==
LOC: RT 13:59
PROVIDERS: PCP Nurse Practitioner; Visit Provider Nurse Practitioner
DX: I65.23 Occlusion and stenosis of bilateral carotid arteries (principal)
CPT/HCPCS: 93880

== ENCOUNTER 2023-05-24 10:06 | Outpatient (POV) | payer MEDICARE, OTHER, SELFPAY | END 2023-05-24 23:59 | disposition home or self-care (01) | LOC: SC 10:07 | PROVIDERS: PCP Family Medicine; Visit Provider Dermatology | DX: Z00.00 Encounter for general adult medical examination without abnormal findings (principal) ==

== ENCOUNTER 2023-09-03 09:12 | Inpatient (IN) | payer MEDICARE, OTHER, SELFPAY ==
[2023-09-03] VITALS (7 sets, daily range): BP systolic 142–195; BP diastolic 89–94; PULSE 51–65; RESP 15–20; TEMP 36.4–37.1; O2SAT 94–98; BMI 33.2; BMI 35.4; BMI 33.5
--- NOTE | 2023-09-03 09:28 | PC.NURSE ---
SPOKE WITH DR CHOWDARY, REPORT GIVEN. WILL TRANSFER PT TO ED FOR FURTHER EVALUATION AT THIS TIME
--- NOTE | 2023-09-03 09:30 | PC.NURSE ---
Addendum entered by Ami Wilson RN 09/03/23 09:44: PT TRANSFERRED TO ROOM 7 IN ED VIA WC Original Note: REPORT GIVEN TO AVIS DEAN
--- NOTE | 2023-09-03 09:31 | EXP.UTC ---
Discharge Plan Disposition Chief Complaint: Neuro Symptoms/Deficit Prescriptions Prescriptions: No Action amiodarone 400 mg tablet 400 mg PO DAILY Qty: 90 2RF aspirin 81 mg tablet,chewable 81 mg PO DAILY Qty: 90 12RF atorvastatin 80 mg tablet 80 mg PO HS Qty: 90 0RF fluoxetine [Prozac] 20 mg capsule 20 mg PO DAILY Qty: 90 3RF levothyroxine 75 mcg tablet 75 mcg PO DAILY Qty: 90 3RF metoprolol succinate [Toprol XL] 50 mg tablet extended release 24 hr 50 mg PO DAILY Qty: 90 3RF azithromycin 500 mg tablet 500 mg PO DAILY 3 Days Qty: 3 0RF cefdinir 300 mg capsule 300 mg PO BID 10 Days Qty: 20 0RF Referrals Follow up/Referrals: Humble Upton MD [Primary Care Provider] - See instructions Discharge ED Provider: Neo Colon [facility] General Chief complaint: Neuro Symptoms/Deficit Stated complaint: numbness in left leg Time Seen by Provider: 09/03/23 09:25 History of Present Illness Provider Complaint: reports that pt had a spell on where pt could not even lift up his leg. She reports that this morning when pt awoke that he was barely able to get out of the bed due to weakness of the left leg. Pt denies any left arm weakness, slurred speech, or facial drooping. reports that pt had a stroke previously. Pt to be transferred to the ER for stroke evaluation. Related Data Previous Rx's Medication Instructions Recorded amiodarone 400 mg tablet 400 mg PO DAILY #90 tabs 05/05/23 aspirin 81 mg chewable tablet 81 mg PO DAILY #90 tabs 05/05/23 atorvastatin 80 mg tablet 80 mg PO HS #90 tabs 05/05/23 azithromycin 500 mg tablet 500 mg PO DAILY 3 days #3 tabs 05/05/23 cefdinir 300 mg capsule 300 mg PO BID 10 days #20 caps 05/05/23 fluoxetine 20 mg capsule (Prozac) 20 mg PO DAILY #90 caps 05/05/23 levothyroxine 75 mcg tablet 75 mcg PO DAILY THYROID #90 tabs 05/05/23 metoprolol succinate 50 mg 50 mg PO DAILY #90 tabs 05/05/23 tablet,extended release 24 hr (Toprol XL) Allergies Allergy/AdvReac Type Severity Reaction Status Date / Time No Known Allergies Allergy Verified 09/03/23 09:55 [facility] Disclaimer: The information contained in this section may have been updated after the patient was seen, as this information can be updated by other users. Medical History (Updated 05/05/23 @ 14:47 by Humble Upton MD) Left cervical lymphadenopathy GERALD (acute kidney injury) Pharyngitis Sleep-disordered breathing A-fib Hypertension Hyperreflexia Internal carotid artery stenosis Memory loss Ischemic cerebrovascular accident (CVA) Stroke Hypothyroid Essential hypertension Chronic diarrhea Benign paroxysmal positional vertigo Surgical History History of colonoscopy History of hernia surgery Family History Other Cancer Social History Smoking Status: Never smoker second hand exposure: No alcohol intake: never substance use type: denies use current occupational status: retired Travel in the last 8 weeks: None household members: children housing: house current occupational exposures/hazards: No caffeine: Yes Medical Decision Making Lab Data 09/03/23 09:44 09/03/23 09:44
--- NOTE | 2023-09-03 09:37 | ECG_ITS ---
APPROVED REPORT Exam: Resting ECG HR:54 bpm ECG Measurements Heart Rate 54 AXES AR 212 P 39 QRSd 98 QRS -14 QT 450 T 17 QTc 435 Conclusion SINUS BRADYCARDIA WITH FIRST DEGREE AV BLOCK LOW QRS VOLTAGE IN PRECORDIAL LEADS [QRS DEFLECTION < 1.0 mV IN CHEST LEADS] ABNORMAL ECG UNCONFIRMED REPORT Electronically signed by : SORIN ROMERO, 09/04/2023 06:17:33
--- NOTE | 2023-09-03 09:40 | CT_ITS ---
PROCEDURE INFORMATION: Exam: CT Head Without Contrast Exam date and time: 09/03/2023 9:57 AM Age: 78 years old Clinical indication: Stroke-like symptoms; Other: Lle weak; Additional info: Possible stroke lle weak TECHNIQUE: Imaging protocol: Computed tomography of the head without contrast. Radiation optimization: All CT scans at this facility use at least one of these dose optimization techniques: automated exposure control; mA and/or kV adjustment per patient size (includes targeted exams where dose is matched to clinical indication); or iterative reconstruction. Other technique: STROKE PROTOCOL was implemented. COMPARISON: 1. CT HEAD/BRAIN WO CON 12/30/2022 3:[address] HEAD/BRAIN WO CON 12/17/2022 7:04 AM FINDINGS: Brain: No hemorrhage. Mild low density in the white matter of both cerebral hemispheres without mass effect. Old left basal ganglion lacunar infarction. No other intra-axial or extra-axial lesions or masses. Mildly prominent, bifrontal, CSF spaces are unchanged and have no evidence of recent hemorrhage. No midline shift. Cerebral ventricles: Ventricular systems are age-appropriate. Paranasal sinuses: Visualized sinuses are well aerated. No fluid levels. Mastoid air cells: Visualized mastoid air cells are well aerated. Bones: No acute fracture or bone lesions. Soft tissues: No abnormalities. IMPRESSION: 1. No acute intracranial abnormality. 2. Mild white matter microvascular disease and atrophic changes are stable. 3. Prominent bifrontal CSF spaces, possibly chronic subdural hematoma/cystic hygromas, have no evidence of recent hemorrhages. ASSESSMENT: ASPECTS ([place] Stroke Program Early CT Score) is 10.
--- NOTE | 2023-09-03 09:40 | CT_ITS ---
PROCEDURE INFORMATION: Exam: CTA Head With Contrast, Arteriography Exam date and time: 09/03/2023 10:02 AM Age: 78 years old Clinical indication: Stroke-like symptoms; Lt lower extremity weakness; Additional info: Possible stroke lle weak TECHNIQUE: Imaging protocol: Computed tomographic angiography of the head with contrast. Exam focused on the arteries. 3D rendering (Not supervised by radiologist): MIP and/or 3D reconstructed images were created by the technologist. Radiation optimization: All CT scans at this facility use at least one of these dose optimization techniques: automated exposure control; mA and/or kV adjustment per patient size (includes targeted exams where dose is matched to clinical indication); or iterative reconstruction. Contrast material: ISOVUE; Contrast volume: 100 ml; Contrast route: INTRAVENOUS (IV); COMPARISON: CT ANGIO HEAD 08/30/2022 9:06 AM COMPARISON MORE: CT HEAD/BRAIN WO CON 12/30/2022 3:11 PM COMPARISON MORE: CT HEAD/BRAIN WO CON 12/17/2022 7:04 AM FINDINGS: ANTERIOR CIRCULATION: Right internal carotid artery: Intracranial segment is patent with no significant stenosis. No aneurysm. Right middle cerebral artery: No occlusion or significant stenosis. No aneurysm. Right anterior cerebral artery: No occlusion or significant stenosis. No aneurysm. Left internal carotid artery: Intracranial segment is patent with no significant stenosis. No aneurysm. Left middle cerebral artery: No occlusion or significant stenosis. No aneurysm. Left anterior cerebral artery: No occlusion or significant stenosis. No aneurysm. POSTERIOR CIRCULATION: Right vertebral artery: No occlusion or significant stenosis. No aneurysm. Left vertebral artery: No occlusion or significant stenosis. No aneurysm. Basilar artery: No occlusion or significant stenosis. No aneurysm. Right posterior cerebral artery: No occlusion or significant stenosis. No aneurysm. Left posterior cerebral artery: No occlusion or significant stenosis. No aneurysm. Brain: No definite mass, mass effect, or midline shift. Old left basal ganglion lacunar infarction. Mild white matter microvascular disease. Mildly prominent bifrontal CSF spaces. Cerebral ventricles: No ventriculomegaly. Bones/joints: No acute fracture or focal bone lesions. Soft tissues: No masses or swelling. IMPRESSION: No large vessel occlusion. No acute intracranial abnormalities.
--- NOTE | 2023-09-03 09:40 | CT_ITS ---
PROCEDURE INFORMATION: Exam: CTA Neck With Contrast Exam date and time: 09/03/2023 10:02 AM Age: 78 years old Clinical indication: Stroke-like symptoms; Lt lower extremity weakness; Additional info: Possible stroke lle weak TECHNIQUE: Imaging protocol: Computed tomographic angiography of the neck with contrast. Exam focused on the cervical segments of the vasculature. 3D rendering (Not supervised by radiologist): MIP and/or 3D reconstructed images were created by the technologist. Radiation optimization: All CT scans at this facility use at least one of these dose optimization techniques: automated exposure control; mA and/or kV adjustment per patient size (includes targeted exams where dose is matched to clinical indication); or iterative reconstruction. Contrast material: ISOVUE; Contrast volume: 100 ml; Contrast route: INTRAVENOUS (IV); COMPARISON: CT ANGIO NECK 08/30/2022 9:06 AM FINDINGS: Right common carotid artery: No stenosis. No dissection or occlusion. Right internal carotid artery: No stenosis of the extracranial segment. No dissection or occlusion. Calcified plaque causes less than 50% stenosis. Right external carotid artery: No occlusion or stenosis of the origin. Left common carotid artery: No stenosis. No dissection or occlusion. Left internal carotid artery: No stenosis of the extracranial segment. No dissection or occlusion. Calcified plaque causes less than 50% stenosis. Left external carotid artery: No occlusion or stenosis of the origin. Right vertebral artery: No stenosis. No dissection or occlusion. Left vertebral artery: No stenosis. No dissection or occlusion. Soft tissues: No masses or edema. Bones/joints: No acute fracture, subluxations, or bone lesions. IMPRESSION: No significant arterial stenosis or occlusion in the neck. REFERENCES: NASCET CRITERIA. The degree of stenosis in the cervical segment of the internal carotid artery is based on NASCET criteria. Normal is no stenosis. Mild is less than 50% stenosis. Moderate is 50-69% stenosis. Severe is 70% to 99% stenosis. Total occlusion is no detectable patent lumen.
--- NOTE | 2023-09-03 09:41 | HMH.EDGENADL ---
Discharge Plan Disposition Patient Disposition: Admitted Clinical Impressions Clinical Impression: Stroke-like symptoms Discharge ED Provider: Neo [facility] General Adult HPI General Chief complaint: Neuro Symptoms/Deficit Stated complaint: numbness in left leg Time Seen by Provider: 09/03/23 09:25 History of Present Illness HPI narrative: Patient is a 78-year-old male with past medical history of previous CVA with no residual who presents emergency department for left lower extremity weakness and paresthesias. Patient has had a previous stroke which she had left lower extremity weakness and facial weakness approximately a year ago. No intervention reportedly done at that time. Since he has had intermittent weakness of his left lower extremity while walking and will start dragging against the ground and he has altered sensation of the affected extremity. No speech problems, no face problems, no vision problems, no upper extremity problems, no trauma, no anticoagulants. No other acute complaints at this time. Per past medical history he has a chart of intermittent atrial fibrillation, hypertension, hypothyroidism he is on amiodarone and metoprolol. Related Data Previous Rx's Medication Instructions Recorded amiodarone 400 mg tablet 400 mg PO DAILY #90 tabs 05/05/23 aspirin 81 mg chewable tablet 81 mg PO DAILY #90 tabs 05/05/23 atorvastatin 80 mg tablet 80 mg PO HS #90 tabs 05/05/23 azithromycin 500 mg tablet 500 mg PO DAILY 3 days #3 tabs 05/05/23 cefdinir 300 mg capsule 300 mg PO BID 10 days #20 caps 05/05/23 fluoxetine 20 mg capsule (Prozac) 20 mg PO DAILY #90 caps 05/05/23 levothyroxine 75 mcg tablet 75 mcg PO DAILY THYROID #90 tabs 05/05/23 metoprolol succinate 50 mg 50 mg PO DAILY #90 tabs 05/05/23 tablet,extended release 24 hr (Toprol XL) Allergies Allergy/AdvReac Type Severity Reaction Status Date / Time No Known Allergies Allergy Verified 09/03/23 09:55 [facility] Disclaimer: The information contained in this section may have been updated after the patient was seen, as this information can be updated by other users. Medical History Left cervical lymphadenopathy GREALD (acute kidney injury) Pharyngitis Sleep-disordered breathing A-fib Hypertension Hyperreflexia Internal carotid artery stenosis Memory loss Ischemic cerebrovascular accident (CVA) Stroke Hypothyroid Essential hypertension Chronic diarrhea Benign paroxysmal positional vertigo Surgical History History of colonoscopy History of hernia surgery Family History Other Cancer Social History (Updated 09/03/23 @ 12:40 by Elza Espinal RN) Smoking Status: Never smoker second hand exposure: No alcohol intake: never substance use type: denies use current occupational status: retired Travel in the last 8 weeks: None household members: children housing: house current occupational exposures/hazards: No caffeine: Yes ROS Obtained: Yes Systems reviewed as appropriate & no additional complaints except as documented Physical Exam General General appearance: alert and in no apparent distress Head Head exam: atraumatic and normocephalic Eye Eye exam: Present PERRL and EOMI ENT ENT exam: Present mucous membranes moist Neck Neck exam: Present normal inspection Chest Chest inspection: Present normal inspection and symmetric chest wall rise Respiratory Respiratory exam: Present normal lung sounds bilaterally; Absent respiratory distress Cardiovascular Cardiovascular exam: Present regular rate and normal rhythm Abdominal Exam Abdominal exam: Present soft; Absent tenderness Extremities Exam Extremities exam: Present normal inspection Neurological Exam Neurological exam: Present alert, oriented X3 and CN II-XII intact; Absent motor sensory deficit Psychiatric Psychiatric exam: Present normal affect Skin Skin exam: Present warm and dry Medical Decision Making Stan Inquiry Pt receiving controlled substance: No Vital Signs: 09/03/23 09:12 09/03/23 09:45 09/03/23 12:23 Temperature 97.9 F 98.1 F 98.1 F Temperature Source Oral Oral Oral Pulse Rate 51 L Pulse Rate [Radial] 56 L 55 L Respiratory Rate 18 16 20 Blood Pressure 180/90 H Blood Pressure [Left Arm] 167/92 H 195/91 H Blood Pressure Mean [Left Arm] 117 125 Blood Pressure Source [Left Arm] Automatic Cuff Blood Pressure Position [Left Arm] Sitting 02 Sat by Pulse Oximetry 97 97 Oxygen Delivery Method Room Air Room Air Room Air Lab Data Lab Results 09/03/23 09:44: WBC 6.9, RBC 4.36 L, Hgb 14.8, Hct 45.1, MCV 103.4 H, MCH 33.9 H, MCHC 32.8, RDW 13.6, Plt Count 235, MPV 8.2, Neut % (Auto) 52.7, Lymph % (Auto) 33.3, [place] % (Auto) 8.9, Eos % (Auto) 3.3, Baso % (Auto) 1.6, Neut # (Auto) 3.6, Lymph # (Auto) 2.3, [place] # (Auto) 0.6, Eos # (Auto) 0.2, Baso # (Auto) 0.1, PT 10.4, INR 0.96, APTT 26.3, Sodium 141, Potassium 4.0, Chloride 111 H, Carbon Dioxide 24, Anion Gap 10.0, BUN 17, Creatinine 1.30 H, Estimated Creat Clear 72, Estimated GFR 53 L, Est GFR ( Amer) 65, Glucose 105 H, Calcium 9.0, Total Bilirubin 0.8, AST 52, ALT 46, Alkaline Phosphatase 71, Troponin I < 0.01, Total Protein 7.4, Albumin 4.3, Globulin 3.1, Albumin/Globulin Ratio 1.4, Triglycerides 218 H, Cholesterol 260 H, LDL Cholesterol Direct 157.13 H, VLDL Cholesterol 44 H, HDL Cholesterol 34 L, Cholesterol/HDL Ratio 7.6 H, Plasma/Serum Alcohol < 10 09/03/23 10:51: Urine Color Yellow, Urine Appearance Clear, Urine pH 6.0, Ur Specific [place] 1.010, Urine Protein Negative, Urine Glucose (UA) Negative, Urine Ketones Negative, Urine Blood Negative, Urine Nitrate Negative, Urine Bilirubin Negative, Urine Urobilinogen 0.2, Ur Leukocyte Esterase Negative, Urine RBC None, Urine WBC None, Ur Squamous Epith Cells Occasional, Urine Bacteria Trace, Urine Opiates Screen Negative, Urine Methadone Screen Negative, Ur Barbituates Screen Negative, Ur Phencyclidine Scrn Negative, Ur Amphetamines Screen Negative, U Benzodiazepines Scrn Negative, Urine Cocaine Screen Negative, U Marijuana (THC) Screen Negative 09/03/23 09:44 09/03/23 09:44 Orders (Tests/Meds): ED MEDICATIONS Generic Name Dose Route Start Last Admin Trade Name Freq PRN Reason Stop Dose Admin Sodium Chloride 10 ml 09/03/23 09:40 Sodium Chloride 0.9% 10ml Flush Syringe IV 10/03/23 09:39 NEEDED PRN Maintain IV Site Discontinued Medications Generic Name Dose Route Start Last Admin Trade Name Freq PRN Reason Stop Dose Admin Iopamidol 100 ml 09/03/23 10:24 09/03/23 10:25 Iopamidol-370 (76%);100ml Bottle IV 09/03/23 10:25 100 ml ONCE ONE Administration Irbesartan 75 mg 09/03/23 12:00 09/03/23 12:42 Irbesartan 75mg Tablet PO 09/03/23 12:01 75 mg ONCE ONE Administration Sodium Chloride 50 ml 09/03/23 10:24 09/03/23 10:25 0.9 % Sodium Chloride 50 Ml Vial IV 09/03/23 10:25 50 ml ONCE ONE Administration Sodium Chloride 10 ml 09/03/23 10:24 09/03/23 10:25 Sodium Chloride 0.9% 10ml Syr (Rad Only) IV 09/03/23 10:25 10 ml ONCE ONE Administration ORDERS Category Date Time Status CT angio head Stat Cat Scan 09/03/23 09:[address] angio neck Stat Cat Scan 09/03/23 09:[address] head/brain wo con Stat Cat Scan 09/03/23 09:40 Completed Activated Partial Thrombo Time Stat Lab 09/03/23 09:44 Completed Complete Blood Count Auto Diff Stat Lab 09/03/23 09:44 Completed Comprehensive Metabolic Panel Stat Lab 09/03/23 09:44 Completed Drug Screen,Urine Stat Lab 09/03/23 10:51 Completed Ethyl Alcohol Stat Lab 09/03/23 09:44 Completed Lipid Panel Stat Lab 09/03/23 09:44 Completed Prothrombin Time INR Stat Lab 09/03/23 09:44 Completed Troponin I Q3H Lab 09/03/23 12:50 Received Troponin I Q3H Lab 09/03/23 15:45 Ordered Troponin I Stat Lab 09/03/23 09:44 Completed Urinalysis and Microscopic Stat Lab 09/03/23 10:51 Completed ECG Data Tracing #1: Independently interpreted by me rate is 54, rhythm is regular, axis is normal, no ST elevation in anatomical contiguous leads, QTc 435. Medical Decision Narrative: In summary patient is a 78-year-old male with past medical history described above who presents emergency department for evaluation of intermittent left lower extremity symptoms with a history of previous CVA. Patient is hemodynamically stable nontoxic-appearing upon arrival, afebrile. Differential diagnosis includes record essence of stroke, acute CVA, among others. Workup will be conducted with hematologic labs, noncontrasted CT scan of the head, CTA of the head and neck. Workup reviewed by me, hematologic labs are nonactionable, stable CKD initial troponin undetectably low. 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 Noncontrasted MRI ordered and the case was discussed with Dr. Meadows regarding management as patient will benefit from medical optimization and secondary stroke prophylaxis. Patient will be admitted to hospital medicine for continued evaluation at this time. Critical Care Critical Care Time Critical Care Time: No
[2023-09-03 09:57] LABS: Basophils # 0.1 K/mm3 (0-0.2); Basophils % 1.6 % (0.1-2.0); Eosinophils # 0.2 K/mm3 (0.0-0.4); Eosinophils % 3.3 % (0.1-12.0); Hematocrit 45.1 % (42.0-52.0); Hemoglobin 14.8 g/dL (14.1-18.0); Lymphocytes # 2.3 K/mm3 (0.7-4.5); Lymphocytes % 33.3 % (10-50); Mean Corpuscular HGB Conc 32.8 g/dL (31.8-35.4); Mean Corpuscular Hemoglobin 33.9 pg (27.0-31.2); Mean Corpuscular Volume 103.4 fl (80-94); Mean Platelet Volume 8.2 fl (7.4-10.4); Monocytes # 0.6 K/mm3 (0.1-1.0); Monocytes % 8.9 % (1.7-9.3); Neutrophils # 3.6 K/mm3 (1.8-7.8); Neutrophils % 52.7 % (37.0-80.0); Platelet Count 235 K/mm3 (142-424); Red Blood Count 4.36 M/mm3 (4.60-6.20); Red Cell Distribution Width 13.6 % (11.5-17.5); White Blood Count 6.9 K/mm3 (4.8-10.8)
[2023-09-03 09:59] LABS: Chloride 111 mmol/L (98-107); Sodium 141 mmol/L (136-145)
[2023-09-03 10:01] LABS: Alanine Aminotransferase 46 U/L (12-78); Albumin Level 4.3 g/dl (3.5-5.0); Albumin/Globulin Ratio 1.4 (1.1-1.8); Alkaline Phosphatase 71 U/L (38-126); Aspartate Amino Transferase 52 U/L (17-59); Bilirubin,Total 0.8 mg/dl (0.2-1.3); Blood Urea Nitrogen 17 mg/dl (9-20); Carbon Dioxide 24 mmol/L (22.0-30.0); Creatinine Clearance Estimated 72 mL/min (50-200); Estimated Glomerular Filt Rate 53 ml/min (>60); GFR (African American) 65 ML/MIN (>60); Globulin 3.1 g/dL (1.3-3.2); Total Protein,Serum 7.4 g/dl (6.3-8.2)
[2023-09-03 10:02] LABS: Chol/HDL Ratio 7.6 (1-3.5); Cholesterol 260 mg/dl (140-200); Glucose 105 mg/dl (74-100); HDL Cholesterol 34 mg/dl (40-60); Triglycerides 218 mg/dl (30-150); VLDL Cholesterol 44 mg/dL (0-40)
[2023-09-03 10:03] LABS: Activated Partial Thrombo Time 26.3 seconds (22.8-30.6); INR 0.96 (0.9-1.1); Prothrombin Time 10.4 seconds (10.1-12.5)
--- NOTE | 2023-09-03 10:12 | PC.NURSE ---
patient gone to CT at this time.
[2023-09-03 10:13] LABS: Direct LDL Cholesterol 157.13 mg/dL (100-129)
--- NOTE | 2023-09-03 10:24 | PC.NURSE ---
Rounded on patient, Urinal provided at this time.
[2023-09-03] MEDS: 0.9 % SODIUM CHLORIDE 50 ML VIAL IV (10:25)
[2023-09-03] MEDS: SODIUM CHLORIDE 0.9% 10ML SYR (RAD ONLY) 10 ML IV (10:25)
[2023-09-03] MEDS: IOPAMIDOL-370 (76%);100ML BOTTLE 100 ML IV (10:25)
--- NOTE | 2023-09-03 10:47 | PC.NURSE ---
speaking to bernabe
[2023-09-03 10:48] LABS: Ethyl Alcohol < 10 mg/dl (0-10); Troponin I < 0.01 ng/ml (0.00-0.034)
[2023-09-03 10:56] LABS: Microscopic, Urine URINE MICROSCOPIC (MICROSCOPIC)
[2023-09-03 11:12] LABS: Appearance,Urine CLEAR (Clear); Bilirubin,Urine Negative (Negative); Blood, Urine Negative (Negative); Color,Urine YELLOW (Yellow); Glucose,Urine (UA) Negative (Negative); Ketones,Urine Negative (Negative); Leukocyte Esterase,Urine Negative (Negative); Nitrate,Urine Negative (Negative); Protein,Urine Negative (Negative); Urobilinogen,Urine 0.2 EU/dl (0.2)
[2023-09-03 11:38] LABS: Bacteria,Urine Trace /lpf; Squamous Epithelial Cell,Urine Occasional #/hpf (0-5)
[2023-09-03 11:48] LABS: Barbiturates Screen,Urine Negative ng/ml (<200); Benzodiazepines Screen,Urine Negative ng/ml (<200)
[2023-09-03 11:49] LABS: Amphetamine/Metha Screen,Urine Negative ng/ml (<1000)
[2023-09-03 11:50] LABS: Cannabinoid Screen,Urine Negative ng/ml (<50); Cocaine Screen,Urine Negative ng/ml (<300)
[2023-09-03 11:51] LABS: Methadone Screen,Urine Negative ng/ml (<300)
[2023-09-03 11:52] LABS: Opiate Screen,Urine Negative ng/ml (<300); Phencyclidine Screen,Urine Negative ng/ml (<25)
--- NOTE | 2023-09-03 12:04 | EXP.HP ---
History of Present Illness *Admission Date: 09/03/23 *Reason for visit:: Strokelike symptoms, leg weakness *History of present illness: Mr. Fragoso is a 78-year-old male with history of CVA last year. Concern for some mild cognitive impairment as residual deficit. Presented to the ER because of worsening lower extremity weakness and paresthesias. Daughter states that she is concerned he has been little bit more forgetful lately. Family reports the patient has not been compliant with his medication regimen the way he should be. Stroke a year ago because some facial weakness but has since recovered from this. Family reports that since he has had intermittent weakness in his left lower extremity with tingling sensation. Starts dragging against the ground and he has had altered sensation. Deny any antonino speech problems but has had difficulty with recall of common objects such as phone. No facial asymmetry or changes in vision. No falls, trauma. Daughter also reports patient's been more flushed lately. Workup in the ER concerning for malignant hypertension with systolics in the 190s. CT did not show any acute changes. Labs nonactionable. Medicine was consulted for admission and further management of suspected stroke versus TIA. MRI pending. On arrival to the floor, patient's symptoms have more or less resolved. Stable on room air. Received low-dose irbesartan with improvement in systolic blood pressure to 140s. Denies any chest pain, shortness of breath, nausea or vomiting. Knows the names of all 4 of his children. Knows who he is and where he is. [facility] Disclaimer: The information contained in this section may have been updated after the patient was seen, as this information can be updated by other users. Medical History Left cervical lymphadenopathy GERALD (acute kidney injury) Pharyngitis Sleep-disordered breathing A-fib Hypertension Hyperreflexia Internal carotid artery stenosis Memory loss Ischemic cerebrovascular accident (CVA) Stroke Hypothyroid Essential hypertension Chronic diarrhea Benign paroxysmal positional vertigo Surgical History History of colonoscopy History of hernia surgery Family History Other Cancer Social History Smoking Status: Never smoker second hand exposure: No alcohol intake: never substance use type: denies use current occupational status: retired Travel in the last 8 weeks: None household members: children housing: house current occupational exposures/hazards: No caffeine: Yes Review of Systems Review of Systems Review of systems (narrative): 14 point review of systems performed, pertinent positives and negatives as per HPI Meds Home Medications and Allergies Home Medications Medication Instructions Recorded Confirmed Type amiodarone 400 mg tablet 400 mg PO DAILY #90 tabs 05/05/23 05/05/23 Rx aspirin 81 mg chewable tablet 81 mg PO DAILY #90 tabs 05/05/23 05/05/23 Rx atorvastatin 80 mg tablet 80 mg PO HS #90 tabs 05/05/23 05/05/23 Rx azithromycin 500 mg tablet 500 mg PO DAILY 3 days #3 tabs 05/05/23 05/05/23 Rx cefdinir 300 mg capsule 300 mg PO BID 10 days #20 caps 05/05/23 05/05/23 Rx fluoxetine 20 mg capsule (Prozac) 20 mg PO DAILY #90 caps 05/05/23 05/05/23 Rx levothyroxine 75 mcg tablet 75 mcg PO DAILY THYROID #90 tabs 05/05/23 05/05/23 Rx metoprolol succinate 50 mg 50 mg PO DAILY #90 tabs 05/05/23 05/05/23 Rx tablet,extended release 24 hr (Toprol XL) New Prescriptions to Start Prescriptions: Allergies Allergy/AdvReac Type Severity Reaction Status Date / Time No Known Allergies Allergy Verified 09/03/23 09:55 Exam Data for Last 24 hours Vital signs and Labs for Last 24 Hours: Temp Pulse Resp BP Pulse Ox O2 Del Method 98.1 F 55 L 16 195/91 H 97 Room Air 09/03/23 09:45 09/03/23 09:45 09/03/23 09:45 09/03/23 09:45 09/03/23 09:45 09/03/23 09:45 Laboratory Results - last 24 hr 09/03/23 09:44: WBC 6.9, RBC 4.36 L, Hgb 14.8, Hct 45.1, MCV 103.4 H, MCH 33.9 H, MCHC 32.8, RDW 13.6, Plt Count 235, MPV 8.2, Neut % (Auto) 52.7, Lymph % (Auto) 33.3, [place] % (Auto) 8.9, Eos % (Auto) 3.3, Baso % (Auto) 1.6, Neut # (Auto) 3.6, Lymph # (Auto) 2.3, [place] # (Auto) 0.6, Eos # (Auto) 0.2, Baso # (Auto) 0.1, PT 10.4, INR 0.96, APTT 26.3, Sodium 141, Potassium 4.0, Chloride 111 H, Carbon Dioxide 24, Anion Gap 10.0, BUN 17, Creatinine 1.30 H, Estimated Creat Clear 72, Estimated GFR 53 L, Est GFR ( Amer) 65, Glucose 105 H, Calcium 9.0, Total Bilirubin 0.8, AST 52, ALT 46, Alkaline Phosphatase 71, Troponin I < 0.01, Total Protein 7.4, Albumin 4.3, Globulin 3.1, Albumin/Globulin Ratio 1.4, Triglycerides 218 H, Cholesterol 260 H, LDL Cholesterol Direct 157.13 H, VLDL Cholesterol 44 H, HDL Cholesterol 34 L, Cholesterol/HDL Ratio 7.6 H, Plasma/Serum Alcohol < 10 09/03/23 10:51: Urine Color Yellow, Urine Appearance Clear, Urine pH 6.0, Ur Specific [place] 1.010, Urine Protein Negative, Urine Glucose (UA) Negative, Urine Ketones Negative, Urine Blood Negative, Urine Nitrate Negative, Urine Bilirubin Negative, Urine Urobilinogen 0.2, Ur Leukocyte Esterase Negative, Urine RBC None, Urine WBC None, Ur Squamous Epith Cells Occasional, Urine Bacteria Trace I & O for Last 24 hours: Intake & Output 08/31/23 09/01/23 09/02/23 09/03/23 23:59 23:59 23:59 23:59 Weight 108.862 kg Constitutional Constitutional: no acute distress, obese and cooperative *Routine HEENT Exam Head: Present normocephalic Eye: Present EOMI ENT: Present mucous membranes moist *Routine Neck Exam Neck: Present supple and full ROM Routine Chest/Breast/Axilla Exam Chest wall: Absent tenderness *Routine Respiratory Exam Respiratory: Present CTA bilaterally; Absent accessory muscle use *Routine Cardiovascular Exam Cardiovascular: Present RRR and Normal S1 *Routine Abdominal Exam Abdominal: Present soft and normoactive bowel sounds; Absent rebound or guarding *Routine Rectal Exam Rectal:: deferred *Routine Genitalia Exam Genitalia:: deferred *Routine Extremities Exam Extremities: Present full ROM Routine Back/Spine/Pelvis Exam Back/Spine: Present full ROM *Routine Skin Exam Skin: Present intact and normal turgor *Routine Neurological Exam Neurological: Present alert, oriented X3, CN II-XII intact, moving all extremities and normal speech; Absent altered mental status or facial asymmetry Assessment and Plan *Assessment and plan (1) Stroke: Status: Acute Qualifiers: CVA mechanism: occlusion Laterality of affected vessel: left Precerebral and cerebral artery: middle cerebral artery Qualified Code(s): I63.512 - Cerebral infarction due to unspecified occlusion or stenosis of left middle cerebral artery Category: Medical Code(s): I63.9 - Cerebral infarction, unspecified (2) Hypothyroid: Status: Acute Qualifiers: Hypothyroidism type: acquired Qualified Code(s): E03.9 - Hypothyroidism, unspecified Category: Medical Code(s): E03.9 - Hypothyroidism, unspecified (3) Essential hypertension: Status: Acute Category: Medical Code(s): I10 - Essential (primary) hypertension (4) Paroxysmal A-fib: Status: Acute Category: Medical Code(s): I48.0 - Paroxysmal atrial fibrillation (5) Memory loss: Problem Comment: Differential diagnosis includes vascular dementia Status: Acute Category: Medical Code(s): R41.3 - Other amnesia (6) Class 1 obesity: Status: Acute Category: Medical Code(s): E66.9 - Obesity, unspecified Plan 78-year-old male who had a stroke a year ago. Presented with new onset symptoms concerning for worsening memory impairment, weakness in his legs, suspicious for stroke per family. Workup in the ER with CT not showing acute stroke and deficits improved after being in the ER for an hour. Noted to have malignant hypertension. Needs admission for further evaluation given risk factors and history. MRI pending. Discussed case with ER physician, request admission. I agreed to admit for further management. Patient's blood pressure severely elevated when he arrived to the floor with systolics greater than 190s. Has not been taking his medications as prescribed per his family. Problems addressed as follows: Suspected acute stroke -Per my review, CT showing old subcortical infarcts. MRI pending to evaluate for acute stroke given reported symptoms -Initiate aspirin 81 mg daily, Plavix 75 mg daily, resume home statin 80 mg nightly -Permissive hypertension, will keep blood pressure systolic under 180. Low-dose irbesartan as needed. Sinus bradycardia on EKG, holding patient's home beta-john. -PT, OT eval's pending CKD 3: A1c 1.3. Hyperlipidemia: LDL 157, statin as above Hypothyroidism: Continue home regimen of 75 mcg levothyroxine daily. TSH pending Malignant hypertension: Allow for permissive hypertension as above. Low-dose irbesartan initiated. Goal systolic less than 180. PPX Lovenox SQ Code Full Cardiac diet
--- NOTE | 2023-09-03 12:12 | PC.NURSE ---
attempted to call report, unable to reach the receiving nurse at this time.
--- NOTE | 2023-09-03 12:16 | PC.NURSE ---
Report given to gus ALBARRAN
--- NOTE | 2023-09-03 12:27 | PC.NURSE ---
arrived by w/c from ED
[2023-09-03] MEDS: IRBESARTAN 75MG TABLET 75 MG PO (12:42)
[2023-09-03 13:21] LABS: Troponin I < 0.01 ng/ml (0.00-0.034)
[2023-09-03 15:58] LABS: Troponin I < 0.01 ng/ml (0.00-0.034)
[2023-09-03] MEDS: ENOXAPARIN 40MG/0.4ML SYRINGE 40 MG SQ (16:47)
--- NOTE | 2023-09-03 17:31 | [facility].PTEV ---
Physical Therapy Evaluation Rehab PT IP Evaluation Start: 09/03/23 12:03 Freq: ONCE Status: Active Protocol: Document 09/03/23 17:23 DAVID (Rec: 09/03/23 17:31 DAVID [id number]) Subjective/History History History Mr. Fragoso is a 78-year-old male with history of CVA last year . Concern for some mild cognitive impairment as residual deficit. Presented to the ER because of worsening lower extremity weakness and paresthesias. Daughter states that she is concerned he has been little bit more forgetful lately. Family reports the patient has not been compliant with his medication regimen the way he should be. Stroke a year ago because some facial weakness but has since recovered from this. Family reports that since he has had intermittent weakness in his left lower extremity with tingling sensation. Starts dragging against the ground and he has had altered sensation. Deny any antonino speech problems but has had difficulty with recall of common objects such as phone. No facial asymmetry or changes in vision. No falls, trauma. Daughter also reports patient's been more flushed lately. Workup in the ER concerning for malignant hypertension with systolics in the 190s. CT did not show any acute changes. Labs nonactionable. Medicine was consulted for admission and further management of suspected stroke versus TIA. MRI pending. On arrival to the floor, patient's symptoms have more or less resolved. Stable on room air. Received low-dose irbesartan with improvement in systolic blood pressure to 140s. Denies any chest pain, shortness of breath, nausea or vomiting. Knows the names of all 4 of his children. Knows who he is and where he is. Patient currently lives at home with his son. Previously ambulatory without AD and independent with all ADL's/ IADL's. Subjective Subjective I feel like I could go home right now. New diagnosis of cancer in past 12 No months? Rehab PT IP Eval Objective Appearance Patient Behavior Appropriate,Cooperative Patient Orientation Person,Place,Birthday Difficulty following instructions none Speech Pattern Clear,Appropriate Ambulation Patient Able to Ambulate Yes Ambulation Observation IP General Gait Pattern Observation No Deviations/Normal Ambulation Distance (feet) 100 Ambulation Assistive Device Rolling Walker Ambulation Ability Supervision/Stand by Balance Ability to Arise Able, w/o using arms Sitting Balance Steady, safe Standing Balance Narrow stance w/o support Dynamic Sitting Balance Ability Normal Dynamic Standing Balance Ability Normal Transfers Bed Transfer Ability Independent Sit to Stand Bed Transfer Ability Independent ROM All Extremities PT ROM Status WFL MMT All Extremities PT MMT WFL Rehab PT IP prob,goals,plan Problems Date of Evaluation: 09/03/23 Discharge Plan PT Discharge Plan At this time, PT suggests patient is a good candidate for discharge to home with referral to outpatient PT once found medically stable by MD. Eval Complexity Eval Charge Codes 32409 - High Complexity PHYSICIAN CERTIFICATION: I certify the specified therapy services for Nelson Fong are required, authorized, and reviewed every 30 days.
[2023-09-03] MEDS: ATORVASTATIN 40MG TABLET 80 MG PO (20:01)
[2023-09-04] VITALS: BP 168/94; PULSE 58; PULSE 61; RESP 18; TEMP 36.7; O2SAT 96
[2023-09-04 04:00] VITALS: BP 144/83; PULSE 67; PULSE 71; RESP 18; TEMP 36.6; O2SAT 96; BMI 33.5
--- NOTE | 2023-09-04 06:31 | PC.NURSE ---
No acute changes during shift. Pt showing no signs of deficits. Equal strength in all extremities. Ambulating to BR independently. No complaints voiced to staff. Call light within reach.
--- NOTE | 2023-09-04 07:22 | EXP.DC.SUM ---
General Admission date:: 09/03/23 Discharge date: 09/04/23 HPI HPI HPI: Mr. Fragoso is a 78-year-old male with history of CVA last year. Concern for some mild cognitive impairment as residual deficit. Presented to the ER because of worsening lower extremity weakness and paresthesias. Daughter states that she is concerned he has been little bit more forgetful lately. Family reports the patient has not been compliant with his medication regimen the way he should be. Stroke a year ago because some facial weakness but has since recovered from this. Family reports that since he has had intermittent weakness in his left lower extremity with tingling sensation. Starts dragging against the ground and he has had altered sensation. Deny any antonino speech problems but has had difficulty with recall of common objects such as phone. No facial asymmetry or changes in vision. No falls, trauma. Daughter also reports patient's been more flushed lately. Workup in the ER concerning for malignant hypertension with systolics in the 190s. CT did not show any acute changes. Labs nonactionable. Medicine was consulted for admission and further management of suspected stroke versus TIA. MRI pending. On arrival to the floor, patient's symptoms have more or less resolved. Stable on room air. Received low-dose irbesartan with improvement in systolic blood pressure to 140s. Denies any chest pain, shortness of breath, nausea or vomiting. Knows the names of all 4 of his children. Knows who he is and where he is. Hospital Course Hospital Course Hospital Course: 78-year-old male who had a stroke a year ago. Presented with new onset symptoms concerning for worsening memory impairment, weakness in his legs, suspicious for stroke per family. Workup in the ER with CT not showing acute stroke and deficits improved after being in the ER for an hour. Noted to have malignant hypertension. Needs admission for further evaluation given risk factors and history. MRI pending. Discussed case with ER physician, request admission. I agreed to admit for further management. Patient's blood pressure severely elevated when he arrived to the floor with systolics greater than 190s. Has not been taking his medications as prescribed per his family. Tolerating initiation of goal-directed therapy. MRI showed punctate right parietal stroke. Does not appear to have persistent deficits at this time from a musculoskeletal standpoint. Evaluated by therapy. Stable to discharge home with outpatient PT. Continue goal-directed meds. Problems addressed as follows: Right parietal stroke Paresthesia -CT obtained in the ER showed old subcortical infarcts. No acute finding on CT. MRI obtained however showing acute punctate stroke in right parietal region. Patient was initiated on aspirin 81 mg daily, Plavix 75 mg daily for 21 days. Resume home Lipitor 80 mg nightly. Allowed for mild permissive hypertension. Discontinued patient's metoprolol due to sinus bradycardia. EKG obtained showing sinus rhythm. Initiated on irbesartan 75 mg once daily for blood pressure. PT evaluated. Patient independently mobile. Will proceed with outpatient PT. Family does have can some concern for memory impairment. This has been expressed in the past as well. Recommend following up with neurology whom he has seen before to evaluate for possible dementia/vascular dementia and monitoring for further deficits from his strokes. CKD 3: Stable. Baseline 1.2-1.3 Hyperlipidemia: LDL 157, statin as above Hypothyroidism: Continue home regimen of 75 mcg levothyroxine daily. TSH elevated at 5, consistent with him not taking his medication regularly. Will continue current dose and recommend repeat TSH in 6 weeks given question of compliance. Exam Data for Last 24 hours Vital signs and Labs for Last 24 Hours: Temp Pulse Resp BP Pulse Ox O2 Del Method 97.8 F 67 18 144/83 H 96 Room Air 09/04/23 04:00 09/04/23 04:00 09/04/23 04:00 09/04/23 04:00 09/04/23 04:00 09/04/23 06:30 Laboratory Results - last 24 hr 09/03/23 09:44: WBC 6.9, RBC 4.36 L, Hgb 14.8, Hct 45.1, MCV 103.4 H, MCH 33.9 H, MCHC 32.8, RDW 13.6, Plt Count 235, MPV 8.2, Neut % (Auto) 52.7, Lymph % (Auto) 33.3, [place] % (Auto) 8.9, Eos % (Auto) 3.3, Baso % (Auto) 1.6, Neut # (Auto) 3.6, Lymph # (Auto) 2.3, [place] # (Auto) 0.6, Eos # (Auto) 0.2, Baso # (Auto) 0.1, PT 10.4, INR 0.96, APTT 26.3, Sodium 141, Potassium 4.0, Chloride 111 H, Carbon Dioxide 24, Anion Gap 10.0, BUN 17, Creatinine 1.30 H, Estimated Creat Clear 72, Estimated GFR 53 L, Est GFR ( Amer) 65, Glucose 105 H, Calcium 9.0, Total Bilirubin 0.8, AST 52, ALT 46, Alkaline Phosphatase 71, Troponin I < 0.01, Total Protein 7.4, Albumin 4.3, Globulin 3.1, Albumin/Globulin Ratio 1.4, Triglycerides 218 H, Cholesterol 260 H, LDL Cholesterol Direct 157.13 H, VLDL Cholesterol 44 H, HDL Cholesterol 34 L, Cholesterol/HDL Ratio 7.6 H, Plasma/Serum Alcohol < 10 09/03/23 10:51: Urine Color Yellow, Urine Appearance Clear, Urine pH 6.0, Ur Specific [place] 1.010, Urine Protein Negative, Urine Glucose (UA) Negative, Urine Ketones Negative, Urine Blood Negative, Urine Nitrate Negative, Urine Bilirubin Negative, Urine Urobilinogen 0.2, Ur Leukocyte Esterase Negative, Urine RBC None, Urine WBC None, Ur Squamous Epith Cells Occasional, Urine Bacteria Trace, Urine Opiates Screen Negative, Urine Methadone Screen Negative, Ur Barbituates Screen Negative, Ur Phencyclidine Scrn Negative, Ur Amphetamines Screen Negative, U Benzodiazepines Scrn Negative, Urine Cocaine Screen Negative, U Marijuana (THC) Screen Negative 09/03/23 12:50: Troponin I < 0.01 09/03/23 15:33: Troponin I < 0.01 I & O for Last 24 hours: Intake & Output 09/01/23 09/02/23 09/03/23 09/04/23 23:59 23:59 23:59 23:59 Intake Total 540 / 540 Output Total 0 / 0 0 / 0 Balance 540 / 540 0 / 0 Weight 102.512 kg 102.512 kg Constitutional Constitutional: no acute distress, obese, chronically ill appearing and cooperative *Routine HEENT Exam Head: Present normocephalic Eye: Present EOMI and PERRL ENT: Present mucous membranes moist *Routine Neck Exam Neck: Present supple; Absent lymphadenopathy *Routine Respiratory Exam Respiratory: Present CTA bilaterally *Routine Cardiovascular Exam Cardiovascular: Present RRR *Routine Abdominal Exam Abdominal: Present soft and normoactive bowel sounds; Absent tenderness *Routine Rectal Exam Patient deferred: visual exam *Routine Exam Patient deferred: penile exam *Routine Extremities Exam Extremities: Absent cyanosis, clubbing or edema *Routine Skin Exam Skin: Present warm; Absent rash *Routine Neurological Exam Neurological: Present alert, oriented X3, CN II-XII intact and moving all extremities; Absent altered mental status Results Data Completed and Pending Labs on day of discharge: Labs from last 24 hours 09/03/23 09/03/23 09/03/23 15:33 12:50 10:51 WBC RBC Hgb Hct MCV MCH MCHC RDW Plt Count MPV Neut % (Auto) Lymph % (Auto) [place] % (Auto) Eos % (Auto) Baso % (Auto) Neut # (Auto) Lymph # (Auto) [place] # (Auto) Eos # (Auto) Baso # (Auto) PT INR APTT Sodium Potassium Chloride Carbon Dioxide Anion Gap BUN Creatinine Estimated Creat Clear Estimated GFR Est GFR ( Amer) Glucose Calcium Total Bilirubin AST ALT Alkaline Phosphatase Troponin I < 0.01 < 0.01 Total Protein Albumin Globulin Albumin/Globulin Ratio Triglycerides Cholesterol LDL Cholesterol Direct VLDL Cholesterol HDL Cholesterol Cholesterol/HDL Ratio Urine Color Yellow Urine Appearance Clear Urine pH 6.0 Ur Specific [place] 1.010 Urine Protein Negative Urine Glucose (UA) Negative Urine Ketones Negative Urine Blood Negative Urine Nitrate Negative Urine Bilirubin Negative Urine Urobilinogen 0.2 Ur Leukocyte Esterase Negative Urine RBC None Urine WBC None Ur Squamous Epith Cells Occasional Urine Bacteria Trace Urine Opiates Screen Negative Urine Methadone Screen Negative Ur Barbituates Screen Negative Ur Phencyclidine Scrn Negative Ur Amphetamines Screen Negative U Benzodiazepines Scrn Negative Urine Cocaine Screen Negative U Marijuana (THC) Screen Negative Plasma/Serum Alcohol 09/03/23 09:44 WBC 6.9 RBC 4.36 L Hgb 14.8 Hct 45.1 MCV 103.4 H MCH 33.9 H MCHC 32.8 RDW 13.6 Plt Count 235 MPV 8.2 Neut % (Auto) 52.7 Lymph % (Auto) 33.3 [place] % (Auto) 8.9 Eos % (Auto) 3.3 Baso % (Auto) 1.6 Neut # (Auto) 3.6 Lymph # (Auto) 2.3 [place] # (Auto) 0.6 Eos # (Auto) 0.2 Baso # (Auto) 0.1 PT 10.4 INR 0.96 APTT 26.3 Sodium 141 Potassium 4.0 Chloride 111 H Carbon Dioxide 24 Anion Gap 10.0 BUN 17 Creatinine 1.30 H Estimated Creat Clear 72 Estimated GFR 53 L Est GFR ( Amer) 65 Glucose 105 H Calcium 9.0 Total Bilirubin 0.8 AST 52 ALT 46 Alkaline Phosphatase 71 Troponin I < 0.01 Total Protein 7.4 Albumin 4.3 Globulin 3.1 Albumin/Globulin Ratio 1.4 Triglycerides 218 H Cholesterol 260 H LDL Cholesterol Direct 157.13 H VLDL Cholesterol 44 H HDL Cholesterol 34 L Cholesterol/HDL Ratio 7.6 H Urine Color Urine Appearance Urine pH Ur Specific [place] Urine Protein Urine Glucose (UA) Urine Ketones Urine Blood Urine Nitrate Urine Bilirubin Urine Urobilinogen Ur Leukocyte Esterase Urine RBC Urine WBC Ur Squamous Epith Cells Urine Bacteria Urine Opiates Screen Urine Methadone Screen Ur Barbituates Screen Ur Phencyclidine Scrn Ur Amphetamines Screen U Benzodiazepines Scrn Urine Cocaine Screen U Marijuana (THC) Screen Plasma/Serum Alcohol < 10 DS: Diagnosis Discharge Diagnosis (1) Stroke: Status: Acute Code(s): I63.9 - Cerebral infarction, unspecified Qualifiers: CVA mechanism: occlusion Laterality of affected vessel: left Precerebral and cerebral artery: middle cerebral artery Qualified Code(s): I63.512 - Cerebral infarction due to unspecified occlusion or stenosis of left middle cerebral artery (2) Hypothyroid: Status: Acute Code(s): E03.9 - Hypothyroidism, unspecified Qualifiers: Hypothyroidism type: acquired Qualified Code(s): E03.9 - Hypothyroidism, unspecified (3) Essential hypertension: Status: Acute Code(s): I10 - Essential (primary) hypertension (4) Paroxysmal A-fib: Status: Acute Code(s): I48.0 - Paroxysmal atrial fibrillation (5) Memory loss: Status: Acute Code(s): R41.3 - Other amnesia Problem details: Differential diagnosis includes vascular dementia (6) Class 1 obesity: Status: Acute Code(s): E66.9 - Obesity, unspecified Meds Home Medications and Allergies Home Medications Medication Instructions Recorded Confirmed Type aspirin 81 mg chewable tablet 81 mg PO DAILY #90 tabs 09/04/23 Rx atorvastatin 80 mg tablet 80 mg PO HS #90 tabs 09/04/23 Rx clopidogrel 75 mg tablet 75 mg PO DAILY 20 days #20 tabs 09/04/23 Rx fluoxetine 20 mg capsule (Prozac) 20 mg PO DAILY #90 caps 09/04/23 Rx irbesartan 75 mg tablet 75 mg PO DAILY 30 days #30 tabs 09/04/23 Rx levothyroxine 75 mcg tablet 75 mcg PO DAILY THYROID #90 tabs 09/04/23 Rx New Prescriptions to Start Prescriptions: aspirin [place] atorvastatin [place] clopidogrel [place] fluoxetine [Prozac] [place] irbesartan [place] levothyroxine [place] Allergies Allergy/AdvReac Type Severity Reaction Status Date / Time No Known Allergies Allergy Verified 09/03/23 09:55 Discharge Plan Disposition Patient Disposition: Home, Self-Care Condition: Fair Discharge Order Discharge Orders: Discharge Order (Routine); Ordered 09/04/23 Ordered By: [place] Follow up Plan Follow up with: Loly Arriaga MD [Staff Physician] - Enter time for follow up (please call for appointment) Humble Upton MD [Primary Care Provider] - Enter time for follow up (please call for appointment) Prescriptions/Medication Reconciliation: New clopidogrel 75 mg Tablet 75 mg PO DAILY 20 Days Qty: 20 0RF irbesartan 75 mg Tablet 75 mg PO DAILY 30 Days Qty: 30 0RF Continued atorvastatin 80 mg tablet 80 mg PO HS Qty: 90 0RF levothyroxine 75 mcg tablet 75 mcg PO DAILY Qty: 90 3RF aspirin 81 mg tablet,chewable 81 mg PO DAILY Qty: 90 12RF fluoxetine [Prozac] 20 mg capsule 20 mg PO DAILY Qty: 90 3RF Discontinued amiodarone 400 mg tablet 400 mg PO DAILY Qty: 90 2RF metoprolol succinate [Toprol XL] 50 mg tablet extended release 24 hr 50 mg PO DAILY Qty: 90 3RF azithromycin 500 mg tablet 500 mg PO DAILY 3 Days Qty: 3 0RF cefdinir 300 mg capsule 300 mg PO BID 10 Days Qty: 20 0RF Other Ambulatory Orders: Rehab Eval, OP (Routine) Timeframe: 3 Days [facility] Location[facility] Therapy Ordered By: [place] Problem Reconciliation Problems Reviewed?: Yes Patient Discharge Instructions ACTIVITY: Continue current activity DIET: continue same diet Patient Instructions: DI for Stroke-Ischemic Providers Primary Care Provider: Humble Upton Admit Provider: [facility] Attending Provider: [place]
[2023-09-04 08:00] VITALS: BP 139/77; PULSE 62; PULSE 65; RESP 16; TEMP 36.4; O2SAT 97
[2023-09-04 08:37] LABS: Basophils # 0.1 K/mm3 (0-0.2); Basophils % 0.9 % (0.1-2.0); Eosinophils # 0.2 K/mm3 (0.0-0.4); Eosinophils % 3.7 % (0.1-12.0); Hematocrit 43.5 % (42.0-52.0); Hemoglobin 14.6 g/dL (14.1-18.0); Lymphocytes # 2.2 K/mm3 (0.7-4.5); Lymphocytes % 33.3 % (10-50); Mean Corpuscular HGB Conc 33.5 g/dL (31.8-35.4); Mean Corpuscular Hemoglobin 34.7 pg (27.0-31.2); Mean Corpuscular Volume 103.6 fl (80-94); Mean Platelet Volume 8.3 fl (7.4-10.4); Monocytes # 0.6 K/mm3 (0.1-1.0); Monocytes % 9.2 % (1.7-9.3); Neutrophils # 3.5 K/mm3 (1.8-7.8); Neutrophils % 52.8 % (37.0-80.0); Platelet Count 226 K/mm3 (142-424); Red Cell Distribution Width 13.6 % (11.5-17.5); White Blood Count 6.6 K/mm3 (4.8-10.8)
[2023-09-04] MEDS: FLUOXETINE 20MG CAPSULE 20 MG PO (08:55)
[2023-09-04] MEDS: ASPIRIN 81MG CHEWABLE TABLET 81 MG PO (08:55)
[2023-09-04] MEDS: CLOPIDOGREL 75MG TAB 75 MG PO (08:55)
[2023-09-04] MEDS: LEVOTHYROXINE 75MCG (0.075MG) TAB 75 MCG PO (08:55)
[2023-09-04] MEDS: IRBESARTAN 75MG TABLET 75 MG PO (08:55)
[2023-09-04 08:56] LABS: Chloride 109 mmol/L (98-107)
[2023-09-04 08:57] LABS: Potassium 3.6 mmoL/L (3.5-5.1); Sodium 141 mmol/L (136-145)
[2023-09-04 08:59] LABS: Alanine Aminotransferase 42 U/L (12-78); Aspartate Amino Transferase 46 U/L (17-59); Blood Urea Nitrogen 18 mg/dl (9-20); Creatinine Clearance Estimated 74 mL/min (50-200); Estimated Glomerular Filt Rate 59 ml/min (>60); GFR (African American) 71 ML/MIN (>60)
[2023-09-04 09:00] LABS: Albumin/Globulin Ratio 1.3 (1.1-1.8); Alkaline Phosphatase 73 U/L (38-126); Anion Gap 10.6 mEq/L (5-15); Bilirubin,Total 0.8 mg/dl (0.2-1.3); Carbon Dioxide 25 mmol/L (22.0-30.0); Globulin 3.1 g/dL (1.3-3.2); Glucose 108 mg/dl (74-100); Magnesium 2.3 mg/dl (1.6-2.3); Total Protein,Serum 7.1 g/dl (6.3-8.2)
[2023-09-04 09:31] LABS: Thyroid Stimulating Hormone 5.76 uIU/mL (0.465-4.68)
--- NOTE | 2023-09-04 10:09 | PC.NURSE ---
called and left a message for Dr. Arriaga's office to call patient with appointment
--- NOTE | 2023-09-05 15:35 | CARE MANAGER ---
Contacted patient related to hospital discharge. He states he feels fine. We reviewed all his medications. He denies any other questions or concerns at this time. AVIS Beauchamp
== END 2023-09-04 10:28 | disposition home or self-care (01) | DRG 66 ==
LOC: UTC 09:16 → ER 09:32 → 2ND 12:11
PROVIDERS: Admitting Provider Internal Medicine Adolescent Medicine; Emergency Provider Emergency Medicine; PCP Family Medicine; Visit Provider Internal Medicine Adolescent Medicine
DX: I63.512 Cerebral infarction due to unspecified occlusion or stenosis of left middle cerebral artery (principal); E03.9 Hypothyroidism, unspecified; I48.0 Paroxysmal atrial fibrillation; R41.3 Other amnesia; E66.9 Obesity, unspecified; Z86.73 Personal history of transient ischemic attack (TIA), and cerebral infarction without residual deficits; K52.9 Noninfective gastroenteritis and colitis, unspecified; I12.9 Hypertensive chronic kidney disease with stage 1 through stage 4 chronic kidney disease, or unspecified chronic kidney disease; N18.30 Chronic kidney disease, stage 3 unspecified
CPT/HCPCS: 36415; 70450; 70496; 70498; 70551; 80053; 80061; 80307; 80320; 81001; 83735; 84443; 84484; 85025; 85610; 85730; 93005; 97163; 99285; J1650; Q9967

== ENCOUNTER 2023-09-20 07:51 | Outpatient (RCR) | payer MEDICARE, OTHER, SELFPAY ==
--- NOTE | 2023-09-20 09:24 | HMH.PTOPEV ---
PT Outpatient Evaluation Rehab PT Outpatient Evaluation Start: 09/20/23 08:03 Freq: Status: Active Protocol: Document 09/20/23 08:45 NINA (Rec: 09/20/23 09:24 PHORYENI [id number]) E-signed By Bob Schumacher, PT Outpatient Therapy Subjective History Subjective History Patient Nelson Fong presents to physical therapy for his initial evaluation, he is a 78 year old male with a chief complaint of bilateral knee stiffness. His PMH includes a CVA last year along with minor CVA that occurred approximately 2 weeks ago. The patient does not report any numbness or tingling in his lower extremities at this time . He has had no current falls and doesn't have any other concerns besides his knees feeling stuck . Patient did mentioned his constant dizziness that is worse at bed time, which is being treated with medications prescribed by his PCP. Patient reports being back to 70% back to normal since his most recent and prior CVA. Chief Complaint Pain,Stiff Symptoms Relieved By Rest/Positioning Symptoms Aggravated By Walking Prior Functional Limitations None Current Functional Limitations None Symptom Description Activity Dependent Hip/Knee Eval Gait Observation General Gait Pattern Observation No Deviations/Normal Assistive Device Assistive Devices None / NA MMT bilateral Hip Flexion Strength Grade 5 Normal Hip Abduction Strength Grade 5 Normal Hip Adduction Strength Grade 5 Normal Hip Extension Strength Grade 5 Normal Knee Extension Strength Grade 5 Normal Knee Flexion Strength Grade 5 Normal Balance Eval Hx of Falls Hx Falls No Gait/Posture Asssessment General Gait Observation No Deviations/Normal Assistive Devices None / NA Level of Transfer Assist Independent Ankle/Foot Observation in Gait Stance Everted Oculomotor Gaze Oculomotor Gaze Nml: Smooth Pursuit Dynamic Gait Index Test Protocol Gait Level Surface Normal Query Text: Instructions: Walk at your normal speed from here to the next dhara (20'). Grading: Dhara the lowest category that applies. Change in Gait Speed Normal Query Text: Instructions: Begin walking at your normal pace (for 5'), when I tell you go , walk as fast as you can (for 5'). When I tell you slow , walk as slowly as you can (for 5'). Grading: [place] the lowest category that applies. Gait with Horizontal Head Turns Normal Query Text: Instructions: Begin walking at your normal pace. When I tell you to look right , keep walking straight, but turn you head to the right. Keep looking to the right unit I tell you look left , then keep walking straight and turn your head to the left. Keep your head to the left until I tell you look straight , then keep walking straight, but return you head to the center. Grading: [place] the lowest category that applies. Gait with Vertical Head Turns Normal Query Text: Instructions: Begin walking at your normal pace. When I tell you to look up , keep walking staight, but tip your head up. Keep looking up until I tell you to look down , then keep walking straight and tip your head down. Keep your head down until I tell you look straight , then keep walking straight, but return your head to the center. Grading: [place] the lowest category that applies. Gait and Pivot Turn Normal Query Text: Instructions: Begin walking at your normal pace. When I tell you turn and stop , turn as quickly as you can to face the opposite direction and stop. Grading: Dhara the lowest category that applies. Step Over Obstacle Normal Query Text: Instructions: Begin walking at your normal speed. When you come to the shoebox, step over it, not around it and keep walking. Grading: [place] the lowest category that applies. Step Around Obstacles Normal Query Text: Instructions: Begin walking at normal speed. When you come to the first cone (about 6' away), walk around the right side of it. When you come to the second cone (6' past first cone), walk around it to the left. Grading: Dh[place] the lowest category that applies. Steps Mild Impairment Query Text: Instructions: Walk up these stairs as you would at home. At the top, turn around and walk down. Grading: [place] the lowest category that applies. Scoring Dynamic Gait Index Score 23 Miscellaneous Dx PT Eval Objective Objective The patient's chief complaint of knee pain was only reproduceable during ascending and descending stairs, his pain was mild and reduced when completing ambulation of activity. -HNS and FNF coordination testing equal and normal B. Outpatient Therapy Assessment Impairments Problems/Impairmments Impaired Stair Climbing Prognosis Rehab Potential Innapropriate for Skilled Therapy Comment Patient is inappropriate for skilled physical therapy at this time, he was advised that if any changes in his stature become altered he is more than welcomed to come back to the clinic. Outpatient Therapy Plan of Care Addendums This patient is a candidate for social No or vocational rehab? Patient/Guardian verbally acknowledges Yes understanding of treatment program and consents to further treatment? Patient/Guardian verbally acknowledges Yes understanding of diagnosis, prognosis and goals for treatment? Eval Complexity PT Charges 95493 - High Complexity Shoulder/Elbow Eval Shoulder Objective Measurements Elbow Objective Measurements PHYSICIAN CERTIFICATION: I certify the specified therapy services for Nelson Fong are required, authorized, and reviewed every 30 days.
== END 2023-09-20 07:55 | disposition home or self-care (01) ==
LOC: PT 07:51
PROVIDERS: Visit Provider Internal Medicine Adolescent Medicine
DX: I63.9 Cerebral infarction, unspecified (principal)
CPT/HCPCS: 97163

== ENCOUNTER 2023-12-08 10:08 | Day surgery (SDC) | payer MEDICARE, OTHER, SELFPAY ==
[2023-11-29 16:14] VITALS: BMI 34.9
[2023-12-08 11:43] VITALS: BP 157/92; PULSE 85; RESP 18; TEMP 36.1; O2SAT 96
[2023-12-08] MEDS: LACTATED RINGERS 1000ML 1,000 ML 25 ML IV (11:50)
--- NOTE | 2023-12-08 12:04 | P.PNANES_ITS ---
[facility] Disclaimer: The information contained in this section may have been updated after the patient was seen, as this information can be updated by other users. Medical History Encounter for pre-operative cardiovascular clearance Left cervical lymphadenopathy GERALD (acute kidney injury) Pharyngitis Sleep-disordered breathing A-fib Hypertension Hyperreflexia Internal carotid artery stenosis Memory loss Ischemic cerebrovascular accident (CVA) Stroke Hypothyroid Essential hypertension Chronic diarrhea Benign paroxysmal positional vertigo Surgical History History of colonoscopy History of hernia surgery Family History Other Cancer Social History Smoking Status: Never smoker second hand exposure: No alcohol intake: never substance use type: denies use current occupational status: retired Travel in the last 8 weeks: None household members: children housing: house current occupational exposures/hazards: No caffeine: Yes [facility] Anesthesia Checklist Patient Identification Patient Identification: Arm Band and Verbal (Name & ) Structural Data Admitted From: Home Planned Operative Procedure/s: Colonoscopy Consent for Planned Operative Procedure(s) Verified: Yes Verified Documents: Surgical Consent and History and Physical NPO Status Verified Time NPO: 00:00 Additional verifications Anesthesia Reactions: No Hx Blood Transfusions: No Blood Transfusion Reaction: No Airway Assessment Mallampati Score:: Class III C-Spine Mobility Assessed: Yes TMJ Mobility Assessed: Yes Dentition: Good Dentition Neurological Assessment Level of Consciousness: Awake Hx Seizures: No Numbness or tingling in extremities: No Anesthesia Plan Anesthesia Risk discussed: Yes Anesthesia Plan: Verified ASA Class: III Anesthesia Type: MAC
[2023-12-08 12:19] VITALS: O2SAT 96
--- NOTE | 2023-12-08 12:25 | EXP.HP ---
History of Present Illness *Admission Date: 12/08/23 *Reason for visit:: Screening *History of present illness: Mr. Fong is a 78-year-old gentleman who is here for screening colonoscopy. The examination is deemed medically necessary for screening and it has been 10 years. The patient has been seen, interviewed and examined prior to the procedure by both myself and the anesthesia provider. [facility] Disclaimer: The information contained in this section may have been updated after the patient was seen, as this information can be updated by other users. Medical History Encounter for pre-operative cardiovascular clearance Left cervical lymphadenopathy GERALD (acute kidney injury) Pharyngitis Sleep-disordered breathing A-fib Hypertension Hyperreflexia Internal carotid artery stenosis Memory loss Ischemic cerebrovascular accident (CVA) Stroke Hypothyroid Essential hypertension Chronic diarrhea Benign paroxysmal positional vertigo Surgical History History of colonoscopy History of hernia surgery Family History Other Cancer Social History Smoking Status: Never smoker second hand exposure: No alcohol intake: never substance use type: denies use current occupational status: retired Travel in the last 8 weeks: None household members: children housing: house current occupational exposures/hazards: No caffeine: Yes Review of Systems Review of Systems Review of systems (narrative): Negative *Cardiovascular Comments: Negative *Gastrointestinal Comments: Negative *Genitourinary Comments: Negative *Musculoskeletal Comments: Negative *Neurologic Comments: Negative Meds Home Medications and Allergies Home Medications ?Medication ?Instructions ?Recorded ?Confirmed ?Type aspirin 81 mg chewable tablet 81 mg PO DAILY #90 tabs 09/14/23 12/08/23 Rx atorvastatin 80 mg tablet 80 mg PO HS #90 tabs 09/14/23 12/08/23 Rx clopidogrel 75 mg tablet 75 mg PO DAILY 20 days #90 tabs 09/14/23 12/08/23 Rx irbesartan 75 mg tablet 75 mg PO DAILY 30 days #90 tabs 09/14/23 12/08/23 Rx levothyroxine 75 mcg tablet 75 mcg PO DAILY THYROID #90 tabs 09/14/23 12/08/23 Rx meclizine 50 mg tablet (Antivert) 50 mg PO BID PRN dizziness #60 tabs 09/14/23 12/08/23 Rx atenolol 50 mg tablet 50 mg PO DAILY 11/28/23 12/08/23 History New Prescriptions to Start Prescriptions: Allergies Allergy/AdvReac Type Severity Reaction Status Date / Time No Known Allergies Allergy Verified 12/08/23 11:36 Exam Data for Last 24 hours Vital signs and Labs for Last 24 Hours: Temp Pulse Resp BP Pulse Ox O2 Del Method 97 F L 85 18 157/92 H 96 Room Air 12/08/23 11:43 12/08/23 11:43 12/08/23 11:43 12/08/23 11:43 12/08/23 11:43 12/08/23 11:43 *Routine HEENT Exam Head: Present normocephalic Eye: Present EOMI and PERRL ENT: Present mucous membranes moist *Routine Neck Exam Neck: Present supple *Routine Respiratory Exam Respiratory: Present CTA bilaterally *Routine Cardiovascular Exam Cardiovascular: Present RRR *Routine Abdominal Exam Abdominal: Present soft and normoactive bowel sounds; Absent tenderness *Routine Rectal Exam Rectal:: deferred *Routine Genitalia Exam Genitalia:: deferred *Routine Extremities Exam Extremities: Absent cyanosis, clubbing or edema *Routine Skin Exam Skin: Present warm; Absent rash *Routine Neurological Exam Neurological: Present alert and oriented X3 Assessment and Plan *Assessment and plan (1) Screening for colon cancer: Status: Acute Category: Medical Code(s): Z12.11 - Encounter for screening for malignant neoplasm of colon Plan A/P: 1. Screening for colon cancer is the preprocedural diagnosis. The patient will be anesthetized/sedated using MAC sedation. The patient has been seen and examined. Cardiac and lung assessment prior to the examination is stable. Proceed with planned colonoscopy
--- NOTE | 2023-12-08 12:26 | [facility].PROCNOTE ---
[facility] Procedure Note Date: 12/08/23 Time: 12:26 Procedure Note:: Colonoscopy Procedure Report: Colonoscopy with cold snare polypectomy Endoscopist: Sina Singleton II, MD Referring physician: Humble Upton MD Date of Procedure: December 08, 2023 Equipment: Olympus 190 variable stiffness pediatric colonoscope Sedation: MAC sedation Indication: Mr. Fong is a 78-year-old gentleman who is referred for screening colonoscopy. His last colonoscopy was approximately 10 years ago. He reports no abdominal pain, weight loss, change in his bowel habits or rectal bleeding. He reports no family history of colon cancer. Procedure: Prior to the procedure, a history and physical exam was performed, and patient's medications and allergies were reviewed. The risks, benefits and alternatives of the sedation and procedure were discussed with the patient. All questions were answered and informed consent was obtained. The patient was brought to the procedure room. Patient identification and proposed procedure were verified by the physician and the nurse. The patient was placed in a left lateral decubitus position and the scope was passed under direct vision. Throughout the procedure, the patient's blood pressure, pulse, and oxygen saturations were monitored continuously. The colonoscopy was accomplished without difficulty. The patient tolerated the procedure well. Findings: On digital rectal examination there was normal rectal tone. There were no external hemorrhoids. The prostate was 2-3+, smooth, soft, symmetric without nodules. The colonoscope was introduced through the anal canal to the rectum and advanced to the cecum. The ileocecal valve and appendiceal orifice were identified. The scope was advanced a short distance into the ileum which appeared grossly normal. The scope was then withdrawn into the colon. The preparation was fair to poor in the right colon with a lot of liquid brown stool. The entire colon was visualized. There was a 8 mm polyp in the ascending colon removed via cold snare polypectomy. The cecum, ascending and transverse colon and mucosa were grossly normal. There were scattered diverticuli throughout the descending and sigmoid colon (LEFT colon). The rectum itself was normal. Upon retroflexion within the rectum there were grade 2 internal hemorrhoids. The preparation was excellent throughout with Jefferson Preparation Score of 6-7 out of 9. The cecal time was 12 minutes. Impression: 1. 8 mm ascending colon polyp 2. Left-sided diverticulosis 3. Grade 2 internal hemorrhoids Plan: I will follow-up the polyp histology. Based upon the patient's age, I am not convinced that he will require any further preventive colonoscopy. I will discuss the findings with the patient and family.
[2023-12-08 12:49] VITALS: BP 96/61; PULSE 78; RESP 16; TEMP -12.7; TEMP 9; O2SAT 92
[2023-12-08 12:59] VITALS: BP 106/72; PULSE 79; RESP 16; O2SAT 92
[2023-12-08 13:09] VITALS: BP 117/74; PULSE 74; RESP 16; O2SAT 95
[2023-12-08 13:19] VITALS: BP 131/82; PULSE 68; RESP 16; O2SAT 96
== END 2023-12-08 13:23 | disposition home or self-care (01) ==
PROVIDERS: PCP Family Medicine; Visit Provider Internal Medicine Gastroenterology
PROC: (CPT 45385; principal; 2023-12-08 13:00)
DX: Z12.11 Encounter for screening for malignant neoplasm of colon (principal); D12.2 Benign neoplasm of ascending colon; K64.1 Second degree hemorrhoids; K57.30 Diverticulosis of large intestine without perforation or abscess without bleeding
CPT/HCPCS: 45385; 88305; 99221; J7120

== ENCOUNTER 2024-01-25 14:50 | Outpatient (CLI) | payer MEDICARE, OTHER, SELFPAY ==
[2024-01-25 15:14] LABS: Blood Urea Nitrogen 21 mg/dl (9-20); Calcium 9.1 mg/dl (8.4-10.2); Carbon Dioxide 26 mmol/L (22.0-30.0); Chloride 108 mmol/L (98-107); Estimated Glomerular Filt Rate 53 ml/min (>60); GFR (African American) 65 ML/MIN (>60); Glucose 81 mg/dl (74-100); Sodium 145 mmol/L (136-145)
== END 2024-01-25 23:59 | disposition home or self-care (01) ==
LOC: LAB 14:51
PROVIDERS: PCP Family Medicine; Visit Provider Internal Medicine
DX: I65.23 Occlusion and stenosis of bilateral carotid arteries (principal); I10 Essential (primary) hypertension; R41.3 Other amnesia; I63.9 Cerebral infarction, unspecified; R00.0 Tachycardia, unspecified
CPT/HCPCS: 36415; 80048

== ENCOUNTER 2024-07-04 12:00 | Outpatient (CLI) | payer MEDICARE, OTHER, SELFPAY ==
[2024-07-04 18:46] LABS: Alanine Aminotransferase 29 U/L (12-78); Albumin Level 4.2 g/dl (3.5-5.0); Albumin/Globulin Ratio 1.4 (1.1-1.8); Alkaline Phosphatase 93 U/L (38-126); Anion Gap 15.2 mEq/L (5-15); Aspartate Amino Transferase 35 U/L (17-59); Blood Urea Nitrogen 17 mg/dl (9-20); Calcium 9.2 mg/dl (8.4-10.2); Carbon Dioxide 26 mmol/L (22.0-30.0); Chloride 106 mmol/L (98-107); Estimated Glomerular Filt Rate 65 ml/min (>60); GFR (African American) 78 ML/MIN (>60); Globulin 2.9 g/dL (1.3-3.2); Glucose 108 mg/dl (74-100); Potassium 4.2 mmoL/L (3.5-5.1); Sodium 143 mmol/L (136-145); Total Protein,Serum 7.1 g/dl (6.3-8.2)
[2024-07-04 19:15] LABS: Thyroid Stimulating Hormone 2.28 uIU/mL (0.465-4.68)
== END 2024-07-04 23:59 | disposition home or self-care (01) ==
LOC: LAB.DROPOF 07-05 09:41
PROVIDERS: PCP Family Medicine; Visit Provider Family Medicine
DX: E03.9 Hypothyroidism, unspecified (principal); I10 Essential (primary) hypertension
CPT/HCPCS: 80053; 84443

== ENCOUNTER 2024-09-05 08:43 | Outpatient (CLI) | payer MEDICARE, OTHER, SELFPAY ==
--- NOTE | 2024-09-05 09:00 | FL_ITS ---
FINAL REPORT CLINICAL HISTORY: dyphagia and hoarseness 1.06 fluoro time 970.52 dap FINDINGS: ESOPHAGRAM HISTORY: Hoarseness. Dysphagia PROCEDURE: The patient ingested barium. Effervescent crystals were also administered. Spot and overhead films were obtained. FINDINGS: The esophagus demonstrates significant esophageal dysmotility. There is a small sliding type hiatal hernia. There is gastroesophageal reflux to the level of the aortic arch. The distal esophagus demonstrates spasmodic narrowing which delays the passage of a barium tablet. It does distend eventually and allow passage. IMPRESSION: 1. Significant esophageal dysmotility. 2. Distal esophageal spasm. 3. Small hiatal hernia and gastroesophageal reflux as above. Endoscopic correlation recommended for further evaluation. Fluoroscopy time: 1 minute 6 seconds Fluoro dose: 970.5 to DAP in [employer] Reviewed, Interpreted and Dictated by Talia Narayanan MD Transcribed by MONICA Steele Authenticated and [facility]
[2024-09-05] MEDS: BARIUM SULFATE(E-Z-AC);750ML BOTTLE 750 ML PO (09:14)
[2024-09-05] MEDS: E-Z-GASII EFFERVESCENT GRANULES;1PK 1 EACH PO (09:14)
[2024-09-05] MEDS: BARIUM SULFATE (E-Z-HD 340GM);135ML BOTTLE 135 ML PO (09:14)
== END 2024-09-05 23:59 | disposition home or self-care (01) ==
LOC: RAD 08:44
PROVIDERS: PCP Family Medicine; Visit Provider Student in an Organized Health Care Education/Training Program
DX: K22.89 Other specified disease of esophagus (principal); K22.4 Dyskinesia of esophagus; K44.9 Diaphragmatic hernia without obstruction or gangrene; K21.9 Gastro-esophageal reflux disease without esophagitis; R49.0 Dysphonia
CPT/HCPCS: 74220

== ENCOUNTER 2024-12-10 11:28 | Outpatient (CLI) | payer MEDICARE, OTHER, SELFPAY ==
[2024-12-10 16:12] LABS: Hematocrit 39.0 % (42.0-52.0); Hemoglobin 13.1 g/dL (14.1-18.0); Immature Granulocytes % 0.3 %; Mean Corpuscular HGB Conc 33.6 g/dL (31.8-35.4); Mean Corpuscular Hemoglobin 33.5 pg (27.0-31.2); Mean Corpuscular Volume 99.7 fl (80-94); Nucleated Red Blood Cells % 0 %; Platelet Count 216 K/mm3 (142-424); Red Blood Count 3.91 M/mm3 (4.60-6.20); Red Cell Distribution Width-SD 46.1 fL; White Blood Count 7.1 K/mm3 (4.8-10.8)
[2024-12-10 18:00] LABS: Alanine Aminotransferase 30 U/L (12-78); Albumin Level 3.8 g/dl (3.5-5.0); Albumin/Globulin Ratio 1.3 (1.1-1.8); Alkaline Phosphatase 88 U/L (38-126); Anion Gap 12.3 mEq/L (5-15); Aspartate Amino Transferase 33 U/L (17-59); Bilirubin,Total 0.8 mg/dl (0.2-1.3); Blood Urea Nitrogen 22 mg/dl (9-20); Calcium 8.8 mg/dl (8.4-10.2); Carbon Dioxide 24 mmol/L (22.0-30.0); Chloride 107 mmol/L (98-107); Cholesterol 121 mg/dl (140-200); Creatinine,Serum 1.10 mg/dl (0.66-1.25); Estimated Glomerular Filt Rate 64 ml/min (>60); GFR (African American) 78 ML/MIN (>60); Globulin 2.9 g/dL (1.3-3.2); Glucose 103 mg/dl (74-100); HDL Cholesterol 37 mg/dl (40-60); Potassium 4.3 mmoL/L (3.5-5.1); Sodium 139 mmol/L (136-145); Total Protein,Serum 6.7 g/dl (6.3-8.2); Triglycerides 123 mg/dl (30-150)
[2024-12-10 18:30] LABS: Thyroid Stimulating Hormone 2.78 uIU/mL (0.465-4.68)
== END 2024-12-10 23:59 ==
LOC: LAB.DROPOF 12-11 10:50
PROVIDERS: PCP Family Medicine; Visit Provider Family Medicine
DX: E03.9 Hypothyroidism, unspecified (principal); I10 Essential (primary) hypertension
CPT/HCPCS: 80053; 80061; 84443; 85025